=== PATIENT | female | born 2000 | race Hispanic/Latino ===

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

== ENCOUNTER → 2023-02-12 | Emergency (ER) | payer BC ==
[~2023-02-12] MED LIST: IBUPROFEN 200 MG TAB PO ONE; IBUPROFEN 400 MG TAB ONE
--- OUTSIDE RECORDS SUMMARY | 2023-02-12 18:57 | XMS REPORT | Continuity of Care Document ---
Author Name Unknown Address [address] [facility] [place] [address] [facility] thconnect Address [address] [facility] [address] [place] [address] Care Team Providers Care Occupational Therapy Teacher Name Role Phone JESSENIA TANG Primary Care Physician Lynette vailable RICHIE ZAPIEN Attending Clinician Unavailable ERICKSON NEGRON Attending Clinician Unavailalex Bagley MAMay Attending Clinician Unavailab ELINOR Leavitt Attending Clinician Richie Jose MD Attending Clinician [phone] Doctor Unassigned, [place] Attending Clinician Kaylee Culp MA Attending Clinician UnavailElinor Hernández Attending Clinician [phone] Slime Bailey PA-C Attending Clinician [phone] SLIME BAILEY Attending Clinician Unavailable , [facility] Attending Clinician Unavailable Christiana Perez Attending Clinician [phone] Annalisa Galeana MD Attending Clinician [phone] Marlene Chin MD Attending Clinician [phone] ANNALISA GALEANA Attending Clinician Unavailable Lester MARCUM, Umair Stephenson Attending Clinician [phone] UMAIR VELIZ Attending Clinician Unavailable Marce PNP, Tracy L Attending Clinician [phone] Lab, [facility] Fam Pob I Attending Clinician Unavailab martina Centeno HARP REPAIRERKala Attending Clinician [phone], [facility] Attending Clinician Unavailable Bridger MARCUM, Cortney Attending Clinician [phone] Payers Payer Name Policy Type Policy Number Effective Date Expirati on Date Source [facility] [id number] 2022 00:00:00 [facility] [id number] 2019 00:00:00 Problems Condition Name Condition Details Condition Category Status Onset Date Resolution Date Last Treatment Date Treating Clinician Comments Source Nexplanon in place Nexplanon in place Disease Active 04-21 00:00: 00 [facility] Irregular menstrual cycle Irregular menstrual cycle Disease Active 04-21 00:00: 00 [facility] Allergies, Adverse Reactions, Alerts Allergy Name Allergy Type Status Severity Reaction(s) Onset Date Inactive Date Treating Clinician Comments Source NO KNOWN ALLERGIE S Drug Class Active [facility] Social History Social Habit Start Date Stop Date Quantity Comments Source History SDOH Alcohol Comment [facility] History SDOH Alcohol Std Drinks [facility] History SDOH Alcohol Binge [facility] Exposure to SARS-CoV-2 (event) 2022-04-17 00:00:00 2022-04-27 10:28:00 Not sure [facility] Alcohol intake 2022-04-27 00:00:00 2022-04-27 00:00:00 Lifetime non-drinker (finding) [facility] Tobacco use and exposure 2022-03-29 00:00:00 2022-03-29 00:00:00 Smokeless tobacco non-user [facility] History SDOH Alcohol Frequency 2018-10-24 00:00:00 2018-10-24 00:00:00 1 [facility] Sex Assigned At 2000 00:00:00 2000 00:00:00 [facility] Smoking Status Start Date Stop Date Source Never smoked tobacco [facility] Medications Ordered Medication Name Filled Medication Name Start Date Stop Date Current Medication? Ordering Clinician Indication Dosage Frequency Signature (SIG) Comments Components Source etonogestre L (NEXPLANON) 68 mg implant 2022-0 04-27 10:45: 08 Yes 68mg 68 mg by Subdermal route once now. [facility] etonogestre L (NEXPLANON) 68 mg implant 2022-0 04-27 10:45: 08 Yes 68mg 68 mg by Subdermal route once now. [facility] etonogestre L (NEXPLANON) 68 mg implant 2022-0 04-27 10:45: 08 Yes 68mg 68 mg by Subdermal route once now. [facility] etonogestre L (NEXPLANON) 68 mg implant 0 04-27 10:45: 08 Yes 68mg 68 mg by Subdermal route once now. [facility] tretinoin 0.025 % cream 0 2- 00:00: 00 Yes [id number] Apply to affected area(s) at bedtime. [facility] clindamycin 1 % gel 2022-0 2-02 00:00: 00 Yes [id number] Apply to affected area(s) 2 (two) times daily. [facility] tretinoin 0.025 % cream 0 2-02 00:00: 00 Yes [id number] Apply to affected area(s) at bedtime. [facility] clindamycin 1 % gel 2022-0 2-02 00:00: 00 Yes [id number] Apply to affected area(s) 2 (two) times daily. [facility] tretinoin 0.025 % cream 2022-0 2-02 00:00: 00 Yes [id number] Apply to affected area(s) at bedtime. [facility] clindamycin 1 % gel 2022-0 2-02 00:00: 00 Yes [id number] Apply to affected area(s) 2 (two) times daily. [facility] tretino[facility].025 % cream 0 2-02 00:00: 00 Yes [id number] Apply to affected area(s) at bedtime. [facility] clindamycin 1 % gel 0 2-02 00:00: 00 Yes [id number] Apply to affected area(s) 2 (two) times daily. [facility] tretinoin 0.025 % cream 0 2- 00:00: 00 Yes [id number] Apply to affected area(s) at bedtime. [facility] clindamycin 1 % gel 2022-0 2- 00:00: 00 Yes [id number] Apply to affected area(s) 2 (two) times daily. [facility] tretinoin 0.025 % cream 0 2- 00:00: 00 Yes [id number] Apply to affected area(s) at bedtime. [facility] clindamycin 1 % gel 2022-0 2- 00:00: 00 Yes [id number] Apply to affected area(s) 2 (two) times daily. [facility] tretinoin 0.025 % cream 0 2- 00:00: 00 Yes [id number] Apply to affected area(s) at bedtime. [facility] clindamycin 1 % gel 0 2- 00:00: 00 Yes [id number] Apply to affected area(s) 2 (two) times daily. [facility] tretinoin 0.025 % cream 0 2- 00:00: 00 Yes [id number] Apply to affected area(s) at bedtime. [facility] clindamycin 1 % gel 2022-0 2-02 00:00: 00 Yes [id number] Apply to affected area(s) 2 (two) times daily. [facility] etonogestre L (NEXPLANON) implant 68 mg 04-21 18:45: 00 04-21 17:46 :00 No [id number] 68mg [facility] etonogestre L (NEXPLANON) implant 68 mg 04-21 18:45: 00 04-21 17:46 :00 No [id number] 68mg 68 mg, Subdermal, ONCE NOW, 1 dose, On Sat04/21/21 at 1245, Routine
Use approved by: PATIENT CASE COORDINATOR [facility] medroxyPROG ESTERone (PROVERA) 10 mg tablet 2020-02 00:00: 00 04-21 00:00 :00 No [id number] Take one by mouth on daily [facility] clindamycin 1 % gel 16 00:00: 00 Yes [id number] Apply to affected area(s) 2 (two) times daily. [facility] tretinoin 0.025 % cream 16 00:00: 00 Yes [id number] Apply to affected area(s) at bedtime. [facility] clindamycin 1 % gel 16 00:00: 00 Yes [id number] Apply to affected area(s) 2 (two) times daily. [facility] tretinoin 0.025 % cream 16 00:00: 00 Yes [id number] Apply to affected area(s) at bedtime. [facility] clindamycin 1 % gel 16 00:00: 00 Yes [id number] Apply to affected area(s) 2 (two) times daily. [facility] tretinoin 0.025 % cream 0 16 00:00: 00 Yes [id number] Apply to affected area(s) at bedtime. [facility] clindamycin 1 % gel 0 16 00:00: 00 03-29 00:00 :00 No [id number] Apply to affected area(s) 2 (two) times daily. [facility] tretinoin 0.025 % cream 0 16 00:00: 00 03-29 00:00 :00 No [id number] Apply to affected area(s) at bedtime. [facility] clindamycin 1 % gel 6-16 00:00: 00 03-29 00:00 :00 No [id number] Apply to affected area(s) 2 (two) times daily. [facility] tretinoin 0.025 % cream 6-16 00:00: 00 03-29 00:00 :00 No [id number] Apply to affected area(s) at bedtime. [facility] tretinoin 0.025 % cream 4- 00:00: 00 08-10 00:00 :00 No [id number] Apply to affected area(s) at bedtime. [facility] clindamycin 1 % gel 4- 00:00: 00 08-10 00:00 :00 No [id number] Apply to affected area(s) 2 (two) times daily. [facility] medroxyPROG ESTERone (PROVERA) 10 mg tablet 8-30 00:00: 00 11-28 00:00 :00 No [id number] Take one by mouth on days 1-10 of each month. [facility] Vital Signs Vital Name Observation Time Observation Value Comments S ourmatt Systolic blood pressure 2022-04-27 16:38:00 128 mm[Hg] [facility] Diastolic blood pressure 2022-04-27 16:38:00 88 mm[Hg] [facility] Heart rate 2022-04-27 16:38:00 70 /min [facility] Body temperature 2022-04-27 16:38:00 36.67 Usha [facility] Respiratory rate 2022-04-27 16:38:00 16 /min [facility] Body height 2022-04-27 16:38:00 157.5 cm [facility] Body weight 2022-04-27 16:38:00 71.714 kg [facility] BMI 2022-04-27 16:38:00 28.92 kg/m2 [facility] Body height 2022-03-29 15:06:00 154.9 cm [facility] Body weight 2022-03-29 15:06:00 63.277 kg [facility] BMI 2022-03-29 15:06:00 26.36 kg/m2 [facility] Systolic blood pressure 2021-04-21 16:52:00 121 mm[Hg] [facility] Diastolic blood pressure 2021-04-21 16:52:00 81 mm[Hg] [facility] Heart rate 2021-04-21 16:52:00 98 /min [facility] Body temperature 2021-04-21 16:52:00 36.72 Usha [facility] Respiratory rate 2021-04-21 16:52:00 18 /min [facility] Body height 2021-04-21 16:52:00 154.9 cm [facility] Body weight 2021-04-21 16:52:00 63.277 kg [facility] BMI 2021-04-21 16:52:00 26.36 kg/m2 [facility] Body mass index (BMI) [Percentile] Per age and sex 2021-04-21 16:52:00 86.28 % [facility] Procedures Procedure Date / Time Performed Performing Clinician Source [facility] PATIENT FINANCIAL POLICY 2022-04-27 16:28:43 Doctor Unassigned, [place] [facility] CONSENT/REFUSAL FOR DIAGNOSIS AND TREATMENT 2022-03-29 14:45:55 Doctor Unassigned, [place] [facility] CONSENT FOR CONTRACEPTION 2021-04-21 06:01:00 Doctor Unassigned, [place] [facility] Encounters Start Date/Time End Date/Time Encounter Type Admission Type Attending Clinicians Care Facility Care Department Encounter ID Source 2023-02-22 09:00:00 2023-02-22 09:00:00 Outpatient RICHIE BLANC [facility] [id number] [facility] 2023-02-01 09:00:00 2023-02-01 09:00:00 Outpatient RICHIE BLANC [facility] [id number] [facility] 2022-08-03 16:00:00 2022-08-03 16:00:00 Outpatient BK MURRAYY [facility] [id number] [facility] 2022-08-02 00:00:00 2022-08-02 00:00:00 Pre Visit Outreach Mary Carmen Bagley 1..114 350.1.13.10 4.2.7.2.686 [id number] [facility] 2022-06-28 13:00:00 2022-06-28 13:00:00 Outpatient R ELINOR KAMARA [facility] [id number] [facility] 2022-04-30 00:00:00 2022-04-30 00:00:00 Telephone Richie Zapien [facility] 1..114 350.1.13.10 4.2.7.2.686 [id number] [facility] 2022-04-27 09:30:00 2022-04-27 10:52:26 Outpatient R RICHIE ZAPIEN [facility] [id number] [facility] 2022-04-27 09:30:00 2022-04-27 10:52:26 Office Visit Richie Zapien [facility] 1..114 350.1.13.10 4.2.7.2.686 [id number] [facility] 2022-04-27 00:00:00 2022-04-27 00:00:00 Orders Only Doctor Unassigned, [place] [facility] 1..114 350.1.13.10 4.2.7.2.686 [id number] [facility] 2022-04-20 00:00:00 2022-04-20 00:00:00 Pre Visit Outreach Kaylee Goldberg [facility] 1..114 350.1.13.10 4.2.7.2.686 [id number] [facility] 2022-03-29 09:00:00 2022-03-29 09:17:35 Outpatient R SHU ELINOR [facility] [id number] [facility] 2022-03-29 09:00:00 2022-03-29 09:17:35 [facility] 1.2840.114 350.1.13.10 4.2.7.2.686 [id number] [facility] 2022-03-29 00:00:00 2022-03-29 00:00:00 Orders Only Doctor Unassigned, [place] [facility] 1.2840.114 350.1.13.10 4.2.7.2.686 [id number] [facility] 2021-04-21 10:30:00 2021-04-21 11:46:04 Office Visit Richie Zapien [facility] 1.840.114 350.1.13.10 4.2.7.2.686 [id number] [facility] 2021-04-21 10:30:00 2021-04-21 11:46:04 Outpatient R RICHIE ZAPIEN [facility] [id number] [facility] 2021-04-21 10:30:00 2021-04-21 10:30:00 Outpatient R RICHIE ZAPIEN [facility] [id number] [facility] 2021-04-21 00:00:00 2021-04-21 00:00:00 Orders Only Doctor Unassigned, [place] [facility] 1.840.114 350.1.13.10 4.2.7.2.686 [id number] [facility] 2021-03-26 00:00:00 2021-03-26 00:00:00 Slime Arredondo [facility] 1.2.840.114 350.1.13.10 4.2.7.2.686 [id number] [facility] 2020-12-26 10:44:27 2020-12-26 11:14:27 Office Visit Slime Bailey [facility] 1.2.840.114 350.1.13.10 4.2.7.2.686 [id number] [facility] 2020-12-26 10:30:00 2020-12-26 10:30:00 [facility] [id number] 2020-12-26 10:30:00 2020-12-26 10:30:00 [facility] [id number] [facility] 2020-12-26 00:00:00 2020-12-26 00:00:00 Orders Only Doctor Unassigned, [place] [facility] 1.2.840.114 350.1.13.10 4.2.7.2.686 [id number] [facility] 2020-11-28 15:12:43 2020-11-28 15:27:43 Burial Needs Salesperson Visit 2, [facility] Slime Bailey [facility] 1.2.840.114 350.1.13.10 4.2.7.2.686 [id number] [facility] 2020-11-28 14:11:07 2020-11-28 15:08:42 Office Visit Slime Bailey [facility] 1.2.840.114 350.1.13.10 4.2.7.2.686 [id number] [facility] 2020-11-28 14:00:00 2020-11-28 14:00:00 Outpatient R LYNN [facility] [id number] [facility] 2020-11-28 00:00:00 2020-11-28 00:00:00 Orders Only Doctor Unassigned, [place] [facility] 1..114 350.1.13.10 4.2.7.2.686 [id number] [facility] 2020-11-09 10:15:00 2020-11-09 10:15:00 Outpatient Wendie BAILEY SLIME [facility] [id number] [facility] 2020-08-10 09:10:43 2020-08-10 09:25:43 Office Visit Christiana Perez Erica [employer], Kathleen [facility] 1.114 350.1.13.10 4.2.7.2.686 [id number] [facility] 2020-08-10 09:15:00 2020-08-10 09:15:00 Outpatient ANNALISA BARRAZA [facility] [id number] [facility] 2020-05-26 10:03:48 2020-05-26 10:23:03 Office Visit Christiana Perez Lindy Skye [facility] 1.114 350.1.13.10 4.2.7.2.686 [id number] [facility] 2020-05-26 10:00:00 2020-05-26 10:00:00 Outpatient UMAIR CALLE [facility] [id number] [facility] 2020-05-26 00:00:00 2020-05-26 00:00:00 Letter (Out) Tracy Zheng [facility] 1.114 350.1.13.10 4.2.7.2.686 [id number] [facility] 2019-09-15 09:05:58 2019-09-15 09:37:26 Laboratory Only Lab, [facility] Fam Pob I [facility] 1.20.114 350.1.13.10 4.2.7.2.686 [id number] 2019-09-15 09:05:58 2019-09-15 09:37:26 Laboratory Only Lab, [facility] Fam Pob I Kala Centeno [facility] 1.2114 350.1.13.10 4.2.7.2.686 [id number] [facility] 2019-09-15 09:00:00 2019-09-15 09:00:00 Outpatient R [facility] [id number] [facility] 2018-10-24 10:10:09 2018-10-24 10:25:09 Burial Needs Salesperson Visit 1, [facility] Lab Cortney Sparks [facility] 1.2840.114 350.1.13.10 4.2.7.2.686 [id number] [facility] 2018-10-24 08:41:09 2018-10-24 09:43:42 Office Visit Bridger Cortney [facility] 1.2840.114 350.1.13.10 4.2.7.2.686 [id number] [facility] 2018-10-24 00:00:00 2018-10-24 00:00:00 Letter (Out) Bridger Cortney [facility] 1.2.840.114 350.1.13.10 4.2.7.2.686 [id number] [facility] 2018-10-24 00:00:00 2018-10-24 00:00:00 Telephone Richie Zapien [facility] 1.2840.114 350.1.13.10 4.2.7.2.686 [id number] [facility] Results Test Description Test Time Test Comments Results Result Co mments Source CULTURE, ROUTINE 2022-09-03 12:44:11 SPECIMEN NUMBER: [id number] CULTURE, ROUTINE SPECIMEN NUMBER: [id number] SPECIMEN COMMENT: ABDOMEN SOURCE: ABDOMEN REPORT STATUS: FINAL DIRECT GRAM STAIN: NO WBCs SEEN NO BACTERIA SEEN FINAL REPORT: 09/03/2022 FEW NORMAL SKIN TAYLOR PRELIMINARY REPORT: 08/31/2022 FEW GRAM POSITIVE TAYLOR PRELIMINARY REPORT #2: 09/01/2022 FEW GRAM POSITIVE TAYLOR UNLESS OTHERWISE INDICATED, ALL TESTING PERFORMED AT [facility] [address] [place] [address] ADULT LITERACY TEACHER: OPAL LANGFORD M.D. CLIA NUMBER [id number] [facility] [place]. [id number]
--- NOTE | 2023-02-12 21:29 | EDPHYS ---
Physician Documentation [facility] Name: Luis Puckett Age: 22 yrs Sex: Female : 2000 Arrival Date: 02/12/2023 Time: 18:54 Bed IW1 Private MD: ED Physician Gm Gipson HPI: 02/12 22:10 This 22 yrs old Female presents to ER via Ambulatory with complaints of Sore kb Throat. 22:10 Patient is a 22-year-old female with no medical history presents for sore throat, kb congestion, chills and bilateral ear pain that started yesterday. Denies cough, shortness of breath, chest pain. Historical: - Allergies: 19:02 No Known Allergies; nj1 - PMHx: 19:02 None; nj1 - Immunization history:: Client reports receiving the 2nd dose of the Covid vaccine. - Social history:: Smoking status: Reported history of juuling and/or vaping. ROS: 22:09 Abdomen/GI: Negative for abdominal pain, nausea, vomiting, diarrhea, and constipation, kb 22:09 Constitutional: Positive for chills, 22:09 ENT: Positive for ear pain, sinus congestion, sore throat, 22:09 All other systems are negative, kb Exam: 22:09 Constitutional: This is a well developed, well nourished patient who is awake, alert, kb and in no acute distress. Head/Face: Normocephalic, atraumatic. ENT: Moist Mucous membranes Cardiovascular: Regular rate Respiratory: Respirations even and unlabored. No increased work of breathing. Talking in full sentences Abdomen/GI: Soft, non-tender. No distention Skin: Warm, dry with normal turgor. Normal color. MS/ Extremity: Pulses equal, no cyanosis. Neurovascular intact. Full, normal range of motion. Neuro: Awake and alert, GCS 15, oriented to person, place, time, and situation. Moves all extremities. Normal gait. Vital Signs: 19:00 BP 138 / 101; Pulse 126; Resp 16; Temp 99.2(O); Pulse Ox 100% ; Weight 73.94 kg; Height nj1 5 ft. 1 in. ; Pain 8/10; 21:30 BP 148 / 80; Pulse 109; Resp 16; Temp 97.9; Pulse Ox 99% on R/A; cg3 19:00 Body Mass Index 30.80 (73.94 kg, 154.94 cm) nj1 19:00 Pain Scale: Adult nj1 MDM: 18:58 Patient medically screened. kb 22:09 Differential diagnosis: Flu, strep, COVID, otitis media, URI. Data reviewed: vital kb signs, nurses notes. Historians other than the Patient: Parent: Mother. Counseling: I had a detailed discussion with the patient and/or guardian regarding the historical points, exam findings, and any diagnostic results supporting the discharge/admit diagnosis, lab results, the need for outpatient follow up, a family practitioner, to return to the emergency department if symptoms worsen or persist or if there are any questions or concerns that arise at home. 02/12 19:03 Order name: COVID-19 SARS RT PCR; Complete Time: 20:27 kb 02/12 19:03 Order name: Flu; Complete Time: 20:56 kb 02/12 19:03 Order name: Strep; Complete Time: 20:27 kb 02/12 19:59 Order name: Throat Culture [facility] 02/12 20:57 Order name: Vital Signs; Complete Time: 21:32 kb Administered Medications: 19:13 Drug: Ibuprofen PO 600 mg PO once Route: PO; nj1 Disposition Summary: 02/12/23 21:28 Discharge Ordered Notes: Location: Home kb Condition: Stable kb Diagnosis - Acute upper respiratory infection, unspecified kb Followup: kb - With: Emergency Department - When: As needed - Reason: Worsening of condition Followup: kb - With: Private Physician - When: 2 - 3 days - Reason: Recheck today's complaints, Continuance of care, Re-evaluation by your physician Discharge Instructions: - Discharge Summary Sheet kb - Upper Respiratory Infection, Adult, Gqoo-bz-[id number] kb - Viral Respiratory Infection, Xvdq-Ja-[id number] kb Forms: - Work release form kb - Medication Reconciliation Form kb - Thank You Letter kb - Antibiotic Education kb - Prescription Opioid Use kb - Patient Portal Instructions kb - Leadership Thank You Letter kb Signatures: Dispatcher [employer] EDAmberly Valdes, Rosita Brewster RN RN nj1 Corrections: (The following items were deleted from the chart) 22:09 22:09 ENT: Positive for sinus congestion, sore throat, kb kb
--- NOTE | 2023-02-12 21:29 | ER ---
Nurse's Notes [facility] Name: Luis Puckett Age: 22 yrs Sex: Female : 2000 Arrival Date: 02/12/2023 Time: 18:54 Bed IW1 Private MD: Diagnosis: Acute upper respiratory infection, unspecified Presentation: 02/12 19:00 Chief complaint: Patient states: Sore throat since yesterday, got worse this morning. nj1 Ramiro ear pain, congestion. Chills. Coronavirus screen: Vaccine status: Patient reports receiving the 2nd dose of the covid vaccine. Ebola Screen: Patient denies travel to an Ebola-affected area in the 21 days before illness onset. Initial Sepsis Screen: Does the patient meet any 2 criteria? HR > 90 bpm. No. Patient's initial sepsis screen is negative. Does the patient have a suspected source of infection? No. Patient's initial sepsis screen is negative. Risk Assessment: Do you want to hurt yourself or someone else? Patient reports no desire to harm self or others. Onset of symptoms was February 11, 2023. 19:00 Method Of Arrival: Ambulatory banner 19:00 Acuity: RUBI 2 nj1 Historical: - Allergies: 19:02 No Known Allergies; nj1 - PMHx: 19:02 None; nj1 - Immunization history:: Client reports receiving the 2nd dose of the Covid vaccine. - Social history:: Smoking status: Reported history of juuling and/or vaping. Screenin:34 [facility] ED Fall Risk Assessment (Adult) History of falling in the last 3 months, lg3 including since admission No falls in past 3 months (0 pts). Abuse screen: Denies threats or abuse. Denies injuries from another. Nutritional screening: No deficits noted. Tuberculosis screening: No symptoms or risk factors identified. Assessment: 21:34 General: Appears in no apparent distress. comfortable. Pain: Complains of pain in right lg3 ear and left ear, throat. Neuro: No deficits noted. Stewart Agitation-Sedation Scale (RASS): 0 - Alert and Calm Level of Consciousness is awake, alert, obeys commands, Oriented to person, place, time, situation. Cardiovascular: No deficits noted. Respiratory: No deficits noted. Airway is patent Respiratory effort is even, unlabored, Respiratory pattern is regular, symmetrical, Breath sounds are clear bilaterally. GI: No deficits noted. No signs and/or symptoms were reported involving the gastrointestinal system. : No deficits noted. No signs and/or symptoms were reported regarding the genitourinary system. EENT: Throat is clear. Derm: No deficits noted. No signs and/or symptoms reported regarding the dermatologic system. Skin is intact, is healthy with good turgor, Skin is dry, Skin is normal, Skin temperature is warm. Musculoskeletal: No deficits noted. No signs and/or symptoms reported regarding the musculoskeletal system. Circulation, motion, and sensation intact. Range of motion: intact in all extremities. Vital Signs: 19:00 BP 138 / 101; Pulse 126; Resp 16; Temp 99.2(O); Pulse Ox 100% ; Weight 73.94 kg; Height nj1 5 ft. 1 in. ; Pain 8/10; 21:30 BP 148 / 80; Pulse 109; Resp 16; Temp 97.9; Pulse Ox 99% on R/A; cg3 19:00 Body Mass Index 30.80 (73.94 kg, 154.94 cm) nj1 19:00 Pain Scale: Adult nj1 ED Course: 18:55 Patient arrived in ED. rg4 18:58 Amberly Guillory FNP-C is [facility]. kb 18:58 Gm Gipson MD is Attending Physician. kb 19:02 Triage completed. nj1 19:03 Arm band placed on right wrist. nj1 19:04 Notified Nurse Practitioner and/or Physician [employer] Drilling [employer] Operator of vital signs. nj1 21:34 Patient has correct armband on for positive identification. lg3 21:34 No provider procedures requiring assistance completed. Patient did not have IV access lg3 during this emergency room visit. Administered Medications: 19:13 Drug: Ibuprofen PO 600 mg PO once Route: PO; nj1 Medication: 21:34 VIS not applicable for this client. lg3 Outcome: 21:28 Discharge ordered by . kb 21:34 Discharged to home ambulatory, lg3 21:34 Condition: stable 21:34 Discharge instructions given to patient, Instructed on discharge instructions, follow up and referral plans. Demonstrated understanding of instructions, follow-up care, 21:37 Patient left the ED. lg3 Signatures: Amberly Guillory FNP-C FNP-Cassandra Garnett rg4 Lindsey Vargas RN RN lg3 Rosita Avila RN RN nj1 Kayli Carr cg3 Corrections: (The following items were deleted from the chart) 19:04 19:00 BP 141 / 104; Pulse 126bpm; Resp 16bpm; Pulse Ox 100%; Temp 99.2F Oral; 73.94 kg; nj1 Height 5 ft. 1 in.; BMI: 30.8; Pain 8/10, Adult; nj1
[2023-02-12 22:55] VITALS: BP 148/80; TEMP 97.9; O2SAT 99
== END ==
LOC: ER 18:54
DX: J06.9 Acute upper respiratory infection, unspecified (principal); Z11.52 Encounter for screening for COVID-19
CPT/HCPCS: 87070; 87081; 87635; 87804; 99283

== ENCOUNTER 2023-05-28 23:43 | Emergency (ER) | payer BC ==
--- OUTSIDE RECORDS SUMMARY | 2023-05-28 23:48 | XMS REPORT | Continuity of Care Document ---
Author Name Unknown Address [address] [facility]. [address] [place] [address] [facility] thconnect Address [address] [facility] [address] [place] [address] Care Team Prov[address] Care [address] Light Wirer Name Role Phone JESSENIA TANG Primary Care Physician Lynette vaRICHIE Franklin Attending Clinician Unavailable Curry MARCUM, Richie Can Attending Clinician [phone] Doctor Unassigned, [place] Attending Clinician U ERICKSON Angel Attending Clinician Unavailalex Bagley , May Attending Clinician UnavailELINOR Valles Attending Clinician Kaylee Shaw MA Attending Clinician UnavailElinor Hernández Attending Clinician [phone] Slime Bailey PA-C Attending Clinician [phone] SLIME BAILEY Attending Clinician Unavailable 2, [facility] Attending Clinician Unavailable Christiana Perez Attending Clinician [phone] Annalisa Galeana MD Attending Clinician [phone] Marlene Chin MD Attending Clinician [phone] ANNALISA GALEANA Attending Clinician Unavailable Umair Veliz MD Attending Clinician [phone] UMAIR VELIZ Attending Clinician Unavailable Marce PASTOR, Tracy Gleason Attending Clinician [phone] Lab, [facility] Fam Pob I Attending Clinician Unavailab martina Centeno PROCESS VALIDATION ENGINEERKala Attending Clinician [phone] 1, [facility] Attending Clinician Unavailable Cortney Sparks MD Attending Clinician [phone] Payers Payer Name Policy Type Policy Number Effective Date Expirati on Date Source BCBS [facility] [id number] 2022 00:00:00 [facility] [id number] 2019 00:00:00 Problems Condition Name Condition Details Condition Category Status Onset Date Resolution Date Last Treatment Date Treating Clinician Comments Source Severe menstrual cramps Severe menstrual cramps Disease Active 05-19 00:00: 00 [facility] Nexplanon in place Nexplanon in place Disease Active 04-21 00:00: 00 [facility] Irregular menstrual cycle Irregular menstrual cycle Disease Active 04-21 00:00: 00 [facility] Allergies, Adverse Reactions, Alerts Allergy Name Allergy Type Status Severity Reaction(s) Onset Date Inactive Date Treating Clinician Comments Source NO KNOWN ALLERGIE S Drug Class Active [facility] Social History Social Habit Start Date Stop Date Quantity Comments Source History SDOH Alcohol Comment [place] [facility] History SDOH Alcohol Std Drinks [facility] History SDOH Alcohol Binge [facility] 2023-05-20 00:00:00 2023-05-20 00:00:00 Lifetime non-drinker (finding) [facility] History of Social function 2023-05-20 00:00:00 2023-05-20 00:00:00 [facility] Exposure to SARS-CoV-2 (event) 2022-04-17 00:00:00 2022-04-27 10:28:00 Not sure [facility] Tobacco use and exposure 2022-03-29 00:00:00 2022-03-29 00:00:00 Smokeless tobacco non-user [facility] History SDOH Alcohol Frequency 2018-10-24 00:00:00 2018-10-24 00:00:00 1 [facility] Sex Assigned At 2002 00:00:00 2002 00:00:00 [facility] Smoking Status Start Date Stop Date Source Never smoked tobacco [facility] Medications Ordered Medication Name Filled Medication Name Start Date Stop Date Current Medication? Ordering Clinician Indication Dosage Frequency Signature (SIG) Comments Components Source medroxyPROG ESTERone (PROVERA) 10 mg tablet 05-19 00:00: 00 Yes [id number] 10mg Take 1 tablet by mouth in the morning. [facility] ibuprofen 600 mg tablet 05-19 00:00: 00 Yes [id number] 600mg Take 1 tablet by mouth every 6 (six) hours as needed for Pain (scale 1-3) or Pain (scale 4-6). [facility] etonogestre L (NEXPLANON) 68 mg implant 04-27 10:45: 08 Yes 68mg 68 mg by Subdermal route once now. [facility] tretinoin 0.025 % cream 03-29 00:00: 00 Yes [id number] Apply to affected area(s) at bedtime. [facility] clindamycin 1 % gel 03-29 00:00: 00 Yes [id number] Apply to affected area(s) 2 (two) times daily. [facility] etonogestre L (NEXPLANON) implant 68 mg 04-21 18:45: 00 04-21 17:46 :00 No [id number] [facility] ESTERone (PROVERA) 10 mg tablet 2020-02 00:00: 00 04-21 00:00 :00 No [id number] Take one by mouth on daily [facility] clindamycin 1 % gel 6-16 00:00: 00 03-29 00:00 :00 No [id number] Apply to affected area(s) 2 (two) times daily. [facility] tretinoin 0.025 % cream 16 00:00: 00 03-29 00:00 :00 No [id number] Apply to affected area(s) at bedtime. [facility] tretinoin 0.025 % cream 4- 00:00: 00 08-10 00:00 :00 No [id number] Apply to affected area(s) at bedtime. [facility] clindamycin 1 % gel 4- 00:00: 00 08-10 00:00 :00 No [id number] Apply to affected area(s) 2 (two) times daily. [facility] medroxyPROG ESTERone (PROVERA) 10 mg tablet 8-30 00:00: 00 11-28 00:00 :00 No [id number] Take one by mouth on days 1-10 of each month. [facility] Immunizations Ordered Immunization Name Filled Immunization Name Date Status Comments Source Influenza Virus Vaccine 2021-11-25 00:00:00 Completed [facility] Influenza Virus Vaccine 2021-11-25 00:00:00 Completed [facility] Influenza Virus Vaccine 2021-11-25 00:00:00 Completed [facility] Influenza Virus Vaccine 2021-11-25 00:00:00 Completed [facility] Meningococcal Polysaccharide (groups A, C, Y and W-135) conjugate vaccine (MCV4P) 2018-10-22 00:00:00 Completed [facility] Meningococcal B, OMV 2018-10-22 00:00:00 Completed [facility] Meningococcal Polysaccharide (groups A, C, Y and W-135) conjugate vaccine (MCV4P) 2018-10-22 00:00:00 Completed [facility] Meningococcal B, OMV 2018-10-22 00:00:00 Completed [facility] Meningococcal Polysaccharide (groups A, C, Y and W-135) conjugate vaccine (MCV4P) 2018-10-22 00:00:00 Completed [facility] Meningococcal B, OMV 2018-10-22 00:00:00 Completed [facility] Meningococcal Polysaccharide (groups A, C, Y and W-135) conjugate vaccine (MCV4P) 2018-10-22 00:00:00 Completed [facility] Meningococcal B, OMV 2018-10-22 00:00:00 Completed [facility] Meningococcal Polysaccharide (groups A, C, Y and W-135) conjugate vaccine (MCV4P) 2018-10-22 00:00:00 Completed [facility] Meningococcal B, OMV 2018-10-22 00:00:00 Completed [facility] Meningococcal Polysaccharide (groups A, C, Y and W-135) conjugate vaccine (MCV4P) 2018-10-22 00:00:00 Completed [facility] Meningococcal B, OMV 2018-10-22 00:00:00 Completed [facility] Influenza Virus Vaccine Quad .5 mL IM 6+ MO 2017-04-05 00:00:00 Completed [facility] Influenza Virus Vaccine Quad .5 mL IM 6+ MO 2017-04-05 00:00:00 Completed [facility] Influenza Virus Vaccine Quad .5 mL IM 6+ MO 2017-04-05 00:00:00 Completed [facility] Influenza Virus Vaccine Quad .5 mL IM 6+ MO 2017-04-05 00:00:00 Completed [facility] Influenza Virus Vaccine Quad .5 mL IM 6+ MO 2017-04-05 00:00:00 Completed [facility] Influenza Virus Vaccine Quad .5 mL IM 6+ MO 2017-04-05 00:00:00 Completed [facility] HPV 2014-07-29 00:00:00 Completed [facility] HPV 2014-07-29 00:00:00 Completed [facility] HPV 2014-07-29 00:00:00 Completed [facility] HPV 2014-07-29 00:00:00 Completed [facility] HPV 2014-07-29 00:00:00 Completed [facility] HPV 2014-07-29 00:00:00 Completed [facility] Influenza Virus Vaccine Quad Nasal 2013-12-10 00:00:00 Completed [facility] Influenza Virus Vaccine Quad Nasal 2013-12-10 00:00:00 Completed [facility] Influenza Virus Vaccine Quad Nasal 2013-12-10 00:00:00 Completed [facility] Influenza Virus Vaccine Quad Nasal 2013-12-10 00:00:00 Completed [facility] Influenza Virus Vaccine Quad Nasal 2013-12-10 00:00:00 Completed [facility] Influenza Virus Vaccine Quad Nasal 2013-12-10 00:00:00 Completed [facility] HPV 2013-09-29 00:00:00 Completed [facility] HPV 2013-09-29 00:00:00 Completed [facility] HPV 2013-09-29 00:00:00 Completed [facility] HPV 2013-09-29 00:00:00 Completed [facility] HPV 2013-09-29 00:00:00 Completed [facility] HPV 2013-09-29 00:00:00 Completed [facility] HPV 2013-07-27 00:00:00 Completed [facility] Meningococcal Polysaccharide (groups A, C, Y and W-135) conjugate vaccine (MCV4P) 2013-07-27 00:00:00 Completed [facility] TDAP 2013-07-27 00:00:00 Completed [facility] HPV 2013-07-27 00:00:00 Completed [facility] Meningococcal Polysaccharide (groups A, C, Y and W-135) conjugate vaccine (MCV4P) 2013-07-27 00:00:00 Completed [facility] TDAP 2013-07-27 00:00:00 Completed [facility] HPV 2013-07-27 00:00:00 Completed [facility] Meningococcal Polysaccharide (groups A, C, Y and W-135) conjugate vaccine (MCV4P) 2013-07-27 00:00:00 Completed [facility] TDAP 2013-07-27 00:00:00 Completed [facility] HPV 2013-07-27 00:00:00 Completed [facility] Meningococcal Polysaccharide (groups A, C, Y and W-135) conjugate vaccine (MCV4P) 2013-07-27 00:00:00 Completed [facility] TDAP 2013-07-27 00:00:00 Completed [facility] HPV 2013-07-27 00:00:00 Completed [facility] Meningococcal Polysaccharide (groups A, C, Y and W-135) conjugate vaccine (MCV4P) 2013-07-27 00:00:00 Completed [facility] TDAP 2013-07-27 00:00:00 Completed [facility] HPV 2013-07-27 00:00:00 Completed [facility] Meningococcal Polysaccharide (groups A, C, Y and W-135) conjugate vaccine (MCV4P) 2013-07-27 00:00:00 Completed [facility] TDAP 2013-07-27 00:00:00 Completed [facility] Influenza Virus Vaccine Nasal 2012-01-31 00:00:00 Completed [facility] Influenza Virus Vaccine Nasal 2012-01-31 00:00:00 Completed [facility] Influenza Virus Vaccine Nasal 2012-01-31 00:00:00 Completed [facility] Influenza Virus Vaccine Nasal 2012-01-31 00:00:00 Completed [facility] Influenza Virus Vaccine Nasal 2012-01-31 00:00:00 Completed [facility] Influenza Virus Vaccine Nasal 2012-01-31 00:00:00 Completed [facility] Influenza Virus Vaccine Nasal 2010-11-20 00:00:00 Completed [facility] Influenza Virus Vaccine Nasal 2010-11-20 00:00:00 Completed [facility] Influenza Virus Vaccine Nasal 2010-11-20 00:00:00 Completed [facility] Influenza Virus Vaccine Nasal 2010-11-20 00:00:00 Completed [facility] Influenza Virus Vaccine Nasal 2010-11-20 00:00:00 Completed [facility] Influenza Virus Vaccine Nasal 2010-11-20 00:00:00 Completed [facility] Flu Trivalent 2009-01-31 00:00:00 Completed [facility] Flu Trivalent 2009-01-31 00:00:00 Completed [facility] Flu Trivalent 2009-01-31 00:00:00 Completed [facility] Flu Trivalent 2009-01-31 00:00:00 Completed [facility] Flu Trivalent 2009-01-31 00:00:00 Completed [facility] Flu Trivalent 2009-01-31 00:00:00 Completed [facility] Flu Trivalent 2008-11-16 00:00:00 Completed [facility] Influenza Virus Vaccine - Whole 2008-11-16 00:00:00 Completed [facility] Flu Trivalent 2008-11-16 00:00:00 Completed [facility] Influenza Virus Vaccine - Whole 2008-11-16 00:00:00 Completed [facility] Flu Trivalent 2008-11-16 00:00:00 Completed [facility] Influenza Virus Vaccine - Whole 2008-11-16 00:00:00 Completed [facility] Flu Trivalent 2008-11-16 00:00:00 Completed [facility] Influenza Virus Vaccine - Whole 2008-11-16 00:00:00 Completed [facility] Flu Trivalent 2008-11-16 00:00:00 Completed [facility] Influenza Virus Vaccine - Whole 2008-11-16 00:00:00 Completed [facility] Flu Trivalent 2008-11-16 00:00:00 Completed [facility] Influenza Virus Vaccine - Whole 2008-11-16 00:00:00 Completed [facility] DTaP, Unspecified Formulation 2006 00:00:00 Completed [facility] HEPATITIS A 2006 00:00:00 Completed [facility] Proquad (MMR/VARICELLA) 2006 00:00:00 Completed [facility] IPV 2006 00:00:00 Completed [facility] DTaP, Unspecified Formulation 2006 00:00:00 Completed [facility] HEPATITIS A 2006 00:00:00 Completed [facility] Proquad (MMR/VARICELLA) 2006 00:00:00 Completed [facility] IPV 2006 00:00:00 Completed [facility] DTaP, Unspecified Formulation 2006 00:00:00 Completed [facility] HEPATITIS A 2006 00:00:00 Completed [facility] Proquad (MMR/VARICELLA) 2006 00:00:00 Completed [facility] IPV 2006 00:00:00 Completed [facility] DTaP, Unspecified Formulation 2006 00:00:00 Completed [facility] HEPATITIS A 2006 00:00:00 Completed [facility] Proquad (MMR/VARICELLA) 2006 00:00:00 Completed [facility] IPV 2006 00:00:00 Completed [facility] DTaP, Unspecified Formulation 2006 00:00:00 Completed [facility] HEPATITIS A 2006 00:00:00 Completed [facility] Proquad (MMR/VARICELLA) 2006 00:00:00 Completed [facility] IPV 2006 00:00:00 Completed [facility] DTaP, Unspecified Formulation 2006 00:00:00 Completed [facility] HEPATITIS A 2006 00:00:00 Completed [facility] Proquad (MMR/VARICELLA) 2006 00:00:00 Completed [facility] IPV 2006 00:00:00 Completed [facility] HEPATITIS A 2005-08-06 00:00:00 Completed [facility] HEPATITIS A 2005-08-06 00:00:00 Completed [facility] HEPATITIS A 2005-08-06 00:00:00 Completed [facility] HEPATITIS A 2005-08-06 00:00:00 Completed [facility] HEPATITIS A 2005-08-06 00:00:00 Completed [facility] HEPATITIS A 2005-08-06 00:00:00 Completed [facility] DTaP, Unspecified Formulation 2003-08-09 00:00:00 Completed [facility] HIB 4 Dose Schedule 2003-08-09 00:00:00 Completed [facility] DTaP, Unspecified Formulation 2003-08-09 00:00:00 Completed [facility] HIB 4 Dose Schedule 2003-08-09 00:00:00 Completed [facility] DTaP, Unspecified Formulation 2003-08-09 00:00:00 Completed [facility] HIB 4 Dose Schedule 2003-08-09 00:00:00 Completed [facility] DTaP, Unspecified Formulation 2003-08-09 00:00:00 Completed [facility] HIB 4 Dose Schedule 2003-08-09 00:00:00 Completed [facility] DTaP, Unspecified Formulation 2003-08-09 00:00:00 Completed [facility] HIB 4 Dose Schedule 2003-08-09 00:00:00 Completed [facility] DTaP, Unspecified Formulation 2003-08-09 00:00:00 Completed [facility] HIB 4 Dose Schedule 2003-08-09 00:00:00 Completed [facility] MMR 2003-06-29 00:00:00 Completed [facility] Pneumococcal 7 Conjugate, PCV7 (Prevnar7) 2003-06-29 00:00:00 Completed [facility] Varicella (varivax)(chicken pox) 2003-06-29 00:00:00 Completed [facility] MMR 2003-06-29 00:00:00 Completed [facility] Pneumococcal 7 Conjugate, PCV7 (Prevnar7) 2003-06-29 00:00:00 Completed [facility] Varicella (varivax)(chicken pox) 2003-06-29 00:00:00 Completed [facility] MMR 2003-06-29 00:00:00 Completed [facility] Pneumococcal 7 Conjugate, PCV7 (Prevnar7) 2003-06-29 00:00:00 Completed [facility] Varicella (varivax)(chicken pox) 2003-06-29 00:00:00 Completed [facility] MMR 2003-06-29 00:00:00 Completed [facility] Pneumococcal 7 Conjugate, PCV7 (Prevnar7) 2003-06-29 00:00:00 Completed [facility] Varicella (varivax)(chicken pox) 2003-06-29 00:00:00 Completed [facility] MMR 2003-06-29 00:00:00 Completed [facility] Pneumococcal 7 Conjugate, PCV7 (Prevnar7) 2003-06-29 00:00:00 Completed [facility] Varicella (varivax)(chicken pox) 2003-06-29 00:00:00 Completed [facility] MMR 2003-06-29 00:00:00 Completed [facility] Pneumococcal 7 Conjugate, PCV7 (Prevnar7) 2003-06-29 00:00:00 Completed [facility] Varicella (varivax)(chicken pox) 2003-06-29 00:00:00 Completed [facility] Polio (IPV/OPV) 2003-04-13 00:00:00 Completed [facility] Polio (IPV/OPV) 2003-04-13 00:00:00 Completed [facility] IPV 2003-04-13 00:00:00 Completed [facility] IPV 2003-04-13 00:00:00 Completed [facility] IPV 2003-04-13 00:00:00 Completed [facility] IPV 2003-04-13 00:00:00 Completed [facility] IPV 2003-04-13 00:00:00 Completed [facility] IPV 2003-04-13 00:00:00 Completed [facility] DTaP, Unspecified Formulation 2003-01-26 00:00:00 Completed [facility] Hep B, Adol or Pedi Dosage 2003-01-26 00:00:00 Completed [facility] HIB 4 Dose Schedule 2003-01-26 00:00:00 Completed [facility] Pneumococcal 7 Conjugate, PCV7 (Prevnar7) 2003-01-26 00:00:00 Completed [facility] DTaP, Unspecified Formulation 2003-01-26 00:00:00 Completed [facility] Hep B, Adol or Pedi Dosage 2003-01-26 00:00:00 Completed [facility] HIB 4 Dose Schedule 2003-01-26 00:00:00 Completed [facility] Pneumococcal 7 Conjugate, PCV7 (Prevnar7) 2003-01-26 00:00:00 Completed [facility] DTaP, Unspecified Formulation 2003-01-26 00:00:00 Completed [facility] Hep B, Adol or Pedi Dosage 2003-01-26 00:00:00 Completed [facility] HIB 4 Dose Schedule 2003-01-26 00:00:00 Completed [facility] Pneumococcal 7 Conjugate, PCV7 (Prevnar7) 2003-01-26 00:00:00 Completed [facility] DTaP, Unspecified Formulation 2003-01-26 00:00:00 Completed [facility] Hep B, Adol or Pedi Dosage 2003-01-26 00:00:00 Completed [facility] HIB 4 Dose Schedule 2003-01-26 00:00:00 Completed [facility] Pneumococcal 7 Conjugate, PCV7 (Prevnar7) 2003-01-26 00:00:00 Completed [facility] DTaP, Unspecified Formulation 2003-01-26 00:00:00 Completed [facility] Hep B, Adol or Pedi Dosage 2003-01-26 00:00:00 Completed [facility] HIB 4 Dose Schedule 2003-01-26 00:00:00 Completed [facility] Pneumococcal 7 Conjugate, PCV7 (Prevnar7) 2003-01-26 00:00:00 Completed [facility] DTaP, Unspecified Formulation 2003-01-26 00:00:00 Completed [facility] Hep B, Adol or Pedi Dosage 2003-01-26 00:00:00 Completed [facility] HIB 4 Dose Schedule 2003-01-26 00:00:00 Completed [facility] Pneumococcal 7 Conjugate, PCV7 (Prevnar7) 2003-01-26 00:00:00 Completed [facility] HIB 4 Dose Schedule 2002 00:00:00 Completed [facility] HIB 4 Dose Schedule 2002 00:00:00 Completed [facility] HIB 4 Dose Schedule 2002 00:00:00 Completed [facility] HIB 4 Dose Schedule 2002 00:00:00 Completed [facility] HIB 4 Dose Schedule 2002 00:00:00 Completed [facility] HIB 4 Dose Schedule 2002 00:00:00 Completed [facility] DTaP, Unspecified Formulation 2002 00:00:00 Completed [facility] HIB 4 Dose Schedule 2002 00:00:00 Completed [facility] Pneumococcal 7 Conjugate, PCV7 (Prevnar7) 2002 00:00:00 Completed [facility] IPV 2002 00:00:00 Completed [facility] DTaP, Unspecified Formulation 2002 00:00:00 Completed [facility] HIB 4 Dose Schedule 2002 00:00:00 Completed [facility] Pneumococcal 7 Conjugate, PCV7 (Prevnar7) 2002 00:00:00 Completed [facility] IPV 2002 00:00:00 Completed [facility] DTaP, Unspecified Formulation 2002 00:00:00 Completed [facility] HIB 4 Dose Schedule 2002 00:00:00 Completed [facility] Pneumococcal 7 Conjugate, PCV7 (Prevnar7) 2002 00:00:00 Completed [facility] IPV 2002 00:00:00 Completed [facility] DTaP, Unspecified Formulation 2002 00:00:00 Completed [facility] HIB 4 Dose Schedule 2002 00:00:00 Completed [facility] Pneumococcal 7 Conjugate, PCV7 (Prevnar7) 2002 00:00:00 Completed [facility] IPV 2002 00:00:00 Completed [facility] DTaP, Unspecified Formulation 2002 00:00:00 Completed [facility] HIB 4 Dose Schedule 2002 00:00:00 Completed [facility] Pneumococcal 7 Conjugate, PCV7 (Prevnar7) 2002 00:00:00 Completed [facility] IPV 2002 00:00:00 Completed [facility] DTaP, Unspecified Formulation 2002 00:00:00 Completed [facility] HIB 4 Dose Schedule 2002 00:00:00 Completed [facility] Pneumococcal 7 Conjugate, PCV7 (Prevnar7) 2002 00:00:00 Completed [facility] IPV 2002 00:00:00 Completed [facility] DTaP, Unspecified Formulation 2002 00:00:00 Completed [facility] Hep B, Adol or Pedi Dosage 2002 00:00:00 Completed [facility] HIB 4 Dose Schedule 2002 00:00:00 Completed [facility] Pneumococcal 7 Conjugate, PCV7 (Prevnar7) 2002 00:00:00 Completed [facility] IPV 2002 00:00:00 Completed [facility] DTaP, Unspecified Formulation 2002 00:00:00 Completed [facility] Hep B, Adol or Pedi Dosage 2002 00:00:00 Completed [facility] HIB 4 Dose Schedule 2002 00:00:00 Completed [facility] Pneumococcal 7 Conjugate, PCV7 (Prevnar7) 2002 00:00:00 Completed [facility] IPV 2002 00:00:00 Completed [facility] DTaP, Unspecified Formulation 2002 00:00:00 Completed [facility] Hep B, Adol or Pedi Dosage 2002 00:00:00 Completed [facility] HIB 4 Dose Schedule 2002 00:00:00 Completed [facility] Pneumococcal 7 Conjugate, PCV7 (Prevnar7) 2002 00:00:00 Completed [facility] IPV 2002 00:00:00 Completed [facility] DTaP, Unspecified Formulation 2002 00:00:00 Completed [facility] Hep B, Adol or Pedi Dosage 2002 00:00:00 Completed [facility] HIB 4 Dose Schedule 2002 00:00:00 Completed [facility] Pneumococcal 7 Conjugate, PCV7 (Prevnar7) 2002 00:00:00 Completed [facility] IPV 2002 00:00:00 Completed [facility] DTaP, Unspecified Formulation 2002 00:00:00 Completed [facility] Hep B, Adol or Pedi Dosage 2002 00:00:00 Completed [facility] HIB 4 Dose Schedule 2002 00:00:00 Completed [facility] Pneumococcal 7 Conjugate, PCV7 (Prevnar7) 2002 00:00:00 Completed [facility] IPV 2002 00:00:00 Completed [facility] DTaP, Unspecified Formulation 2002 00:00:00 Completed [facility] Hep B, Adol or Pedi Dosage 2002 00:00:00 Completed [facility] HIB 4 Dose Schedule 2002 00:00:00 Completed [facility] Pneumococcal 7 Conjugate, PCV7 (Prevnar7) 2002 00:00:00 Completed [facility] IPV 2002 00:00:00 Completed [facility] Hep B, Adol or Pedi Dosage 2002 00:00:00 Completed [facility] Hep B, Adol or Pedi Dosage 2002 00:00:00 Completed [facility] DTaP, Unspecified Formulation Unknown Completed [facility] DTaP, Unspecified Formulation Unknown Completed [facility] DTaP, Unspecified Formulation Unknown Completed [facility] DTaP, Unspecified Formulation Unknown Completed [facility] DTaP, Unspecified Formulation Unknown Completed [facility] Influenza Virus Vaccine Quad .5 mL IM 6+ MO (FLUZONE/FLULAVAL/FL UARIX) Unknown Completed [facility] Influenza Virus Vaccine Quad Nasal (Flumist) Unknown Completed [facility] Flu Trivalent Unknown [facility] Influenza Virus Vaccine - Whole Unknown Completed [facility] Influenza Virus Vaccine Nasal Unknown Completed [facility] Influenza Virus Vaccine Nasal Unknown Completed [facility] HEPATITIS A Unknown Completed [facility] HEPATITIS A Unknown Completed [facility] Hep B, Adol or Pedi Dosage Unknown Completed [facility] Hep B, Adol or Pedi Dosage Unknown Completed [facility] HIB 4 Dose Schedule Unknown Completed [facility] HIB 4 Dose Schedule Unknown Completed [facility] HIB 4 Dose Schedule Unknown Completed [facility] HIB 4 Dose Schedule Unknown Completed [facility] HIB 4 Dose Schedule Unknown Completed [facility] HPV Unknown Completed [facility] HPV Unknown Completed [facility] HPV Unknown Completed [facility] Meningococcal Polysaccharide (groups A, C, Y and W-135) conjugate vaccine (MCV4P) Unknown Completed [facility] Meningococcal Polysaccharide (groups A, C, Y and W-135) conjugate vaccine (MCV4P) Unknown Completed [facility] Meningococcal B, OMV Unknown Completed [facility] MMR Unknown Completed [facility] Proquad (MMR/VARICELLA) Unknown Completed [facility] Pneumococcal 7 Conjugate, PCV7 (Prevnar7) Unknown Completed [facility] Pneumococcal 7 Conjugate, PCV7 (Prevnar7) Unknown Completed [facility] Pneumococcal 7 Conjugate, PCV7 (Prevnar7) Unknown Completed [facility] Pneumococcal 7 Conjugate, PCV7 (Prevnar7) Unknown Completed [facility] IPV Unknown Completed [facility] IPV Unknown Completed [facility] IPV Unknown Completed [facility] IPV Unknown Completed [facility] TDAP Unknown Completed [facility] Varicella (varivax)(chicken pox) Unknown Completed [facility] Influenza Virus Vaccine Unknown Completed [facility] DTaP, Unspecified Formulation Unknown Completed [facility] DTaP, Unspecified Formulation Unknown Completed [facility] DTaP, Unspecified Formulation Unknown Completed [facility] DTaP, Unspecified Formulation Unknown Completed [facility] DTaP, Unspecified Formulation Unknown Completed [facility] Influenza Virus Vaccine Quad .5 mL IM 6+ MO (FLUZONE/FLULAVAL/FL UARIX) Unknown Completed [facility] Influenza Virus Vaccine Quad Nasal (Flumist) Unknown Completed [facility] Flu Trivalent Unknown [facility] Flu [facility]rivalent Unknown [facility] Influenza Virus Vaccine - Whole Unknown Completed [facility] Influenza Virus Vaccine Nasal Unknown Completed [facility] Influenza Virus Vaccine Nasal Unknown Completed [facility] HEPATITIS A Unknown Completed [facility] HEPATITIS A Unknown Completed [facility] Hep B, Adol or Pedi Dosage Unknown Completed [facility] Hep B, Adol or Pedi Dosage Unknown Completed [facility] HIB 4 Dose Schedule Unknown Completed [facility] HIB 4 Dose Schedule Unknown Completed [facility] HIB 4 Dose Schedule Unknown Completed [facility] HIB 4 Dose Schedule Unknown Completed [facility] HIB 4 Dose Schedule Unknown Completed [facility] HPV Unknown Completed [facility] HPV Unknown Completed [facility] HPV Unknown Completed [facility] Meningococcal Polysaccharide (groups A, C, Y and W-135) conjugate vaccine (MCV4P) Unknown Completed [facility] Meningococcal Polysaccharide (groups A, C, Y and W-135) conjugate vaccine (MCV4P) Unknown Completed [facility] Meningococcal B, OMV Unknown Completed [facility] MMR Unknown Completed [facility] Proquad (MMR/VARICELLA) Unknown Completed [facility] Pneumococcal 7 Conjugate, PCV7 (Prevnar7) Unknown Completed [facility] Pneumococcal 7 Conjugate, PCV7 (Prevnar7) Unknown Completed [facility] Pneumococcal 7 Conjugate, PCV7 (Prevnar7) Unknown Completed [facility] Pneumococcal 7 Conjugate, PCV7 (Prevnar7) Unknown Completed [facility] IPV Unknown Completed [facility] IPV Unknown Completed [facility] IPV Unknown Completed [facility] IPV Unknown Completed [facility] TDAP Unknown Completed [facility] Varicella (varivax)(chicken pox) Unknown Completed [facility] Influenza Virus Vaccine Unknown Completed [facility] DTaP, Unspecified Formulation Unknown Completed [facility] DTaP, Unspecified Formulation Unknown Completed [facility] DTaP, Unspecified Formulation Unknown Completed [facility] DTaP, Unspecified Formulation Unknown Completed [facility] DTaP, Unspecified Formulation Unknown Completed [facility] Influenza Virus Vaccine Quad .5 mL IM 6+ MO (FLUZONE/FLULAVAL/FL UARIX) Unknown Completed [facility] Influenza Virus Vaccine Quad Nasal (Flumist) Unknown Completed [facility] Flu Trivalent Unknown [facility] Flu [facility]rivalent Unknown [facility] Influenza Virus Vaccine - Whole Unknown Completed [facility] Influenza Virus Vaccine Nasal Unknown Completed [facility] Influenza Virus Vaccine Nasal Unknown Completed [facility] HEPATITIS A Unknown Completed [facility] HEPATITIS A Unknown Completed [facility] Hep B, Adol or Pedi Dosage Unknown Completed [facility] Hep B, Adol or Pedi Dosage Unknown Completed [facility] HIB 4 Dose Schedule Unknown Completed [facility] HIB 4 Dose Schedule Unknown Completed [facility] HIB 4 Dose Schedule Unknown Completed [facility] HIB 4 Dose Schedule Unknown Completed [facility] HIB 4 Dose Schedule Unknown Completed [facility] HPV Unknown Completed [facility] HPV Unknown Completed [facility] HPV Unknown Completed [facility] Meningococcal Polysaccharide (groups A, C, Y and W-135) conjugate vaccine (MCV4P) Unknown Completed [facility] Meningococcal Polysaccharide (groups A, C, Y and W-135) conjugate vaccine (MCV4P) Unknown Completed [facility] Meningococcal B, OMV Unknown Completed [facility] MMR Unknown Completed [facility] Proquad (MMR/VARICELLA) Unknown Completed [facility] Pneumococcal 7 Conjugate, PCV7 (Prevnar7) Unknown Completed [facility] Pneumococcal 7 Conjugate, PCV7 (Prevnar7) Unknown Completed [facility] Pneumococcal 7 Conjugate, PCV7 (Prevnar7) Unknown Completed [facility] Pneumococcal 7 Conjugate, PCV7 (Prevnar7) Unknown Completed [facility] IPV Unknown Completed [facility] IPV Unknown Completed [facility] IPV Unknown Completed [facility] IPV Unknown Completed [facility] TDAP Unknown Completed [facility] Varicella (varivax)(chicken pox) Unknown Completed [facility] Influenza Virus Vaccine Unknown Completed [facility] DTaP, Unspecified Formulation Unknown Completed [facility] DTaP, Unspecified Formulation Unknown Completed [facility] DTaP, Unspecified Formulation Unknown Completed [facility] DTaP, Unspecified Formulation Unknown Completed [facility] DTaP, Unspecified Formulation Unknown Completed [facility] Influenza Virus Vaccine Quad .5 mL IM 6+ MO (FLUZONE/FLULAVAL/FL UARIX) Unknown Completed [facility] Influenza Virus Vaccine Quad Nasal (Flumist) Unknown Completed [facility] Flu Trivalent Unknown [facility] Flu Trivalent Unknown [facility] Influenza Virus Vaccine - Whole Unknown Completed [facility] Influenza Virus Vaccine Nasal Unknown Completed [facility] Influenza Virus Vaccine Nasal Unknown Completed [facility] HEPATITIS A Unknown Completed [facility] HEPATITIS A Unknown Completed [facility] Hep B, Adol or Pedi Dosage Unknown Completed [facility] Hep B, Adol or Pedi Dosage Unknown Completed [facility] HIB 4 Dose Schedule Unknown Completed [facility] HIB 4 Dose Schedule Unknown Completed [facility] HIB 4 Dose Schedule Unknown Completed [facility] HIB 4 Dose Schedule Unknown Completed [facility] HIB 4 Dose Schedule Unknown Completed [facility] HPV Unknown Completed [facility] HPV Unknown Completed [facility] HPV Unknown Completed [facility] Meningococcal Polysaccharide (groups A, C, Y and W-135) conjugate vaccine (MCV4P) Unknown Completed [facility] Meningococcal Polysaccharide (groups A, C, Y and W-135) conjugate vaccine (MCV4P) Unknown Completed [facility] Meningococcal B, OMV Unknown Completed [facility] MMR Unknown Completed [facility] Proquad (MMR/VARICELLA) Unknown Completed [facility] Pneumococcal 7 Conjugate, PCV7 (Prevnar7) Unknown Completed [facility] Pneumococcal 7 Conjugate, PCV7 (Prevnar7) Unknown Completed [facility] Pneumococcal 7 Conjugate, PCV7 (Prevnar7) Unknown Completed [facility] Pneumococcal 7 Conjugate, PCV7 (Prevnar7) Unknown Completed [facility] IPV Unknown Completed [facility] IPV Unknown Completed [facility] IPV Unknown Completed [facility] IPV Unknown Completed [facility] TDAP Unknown Completed [facility] Varicella (varivax)(chicken pox) Unknown Completed [facility] Influenza Virus Vaccine Unknown Completed [facility] DTaP, Unspecified Formulation Unknown Completed [facility] DTaP, Unspecified Formulation Unknown Completed [facility] DTaP, Unspecified Formulation Unknown Completed [facility] DTaP, Unspecified Formulation Unknown Completed [facility] DTaP, Unspecified Formulation Unknown Completed [facility] Influenza Virus Vaccine Quad .5 mL IM 6+ MO (FLUZONE/FLULAVAL/FL UARIX) Unknown Completed [facility] Influenza Virus Vaccine Quad Nasal (Flumist) Unknown Completed [facility] Flu Trivalent Unknown [facility] Flu Trivalent Unknown [facility] Influenza Virus Vaccine - Whole Unknown Completed [facility] Influenza Virus Vaccine Nasal Unknown Completed [facility] Influenza Virus Vaccine Nasal Unknown Completed [facility] HEPATITIS A Unknown Completed [facility] HEPATITIS A Unknown Completed [facility] Hep B, Adol or Pedi Dosage Unknown Completed [facility] Hep B, Adol or Pedi Dosage Unknown Completed [facility] HIB 4 Dose Schedule Unknown Completed [facility] HIB 4 Dose Schedule Unknown Completed [facility] HIB 4 Dose Schedule Unknown Completed [facility] HIB 4 Dose Schedule Unknown Completed [facility] HIB 4 Dose Schedule Unknown Completed [facility] HPV Unknown Completed [facility] HPV Unknown Completed [facility] HPV Unknown Completed [facility] Meningococcal Polysaccharide (groups A, C, Y and W-135) conjugate vaccine (MCV4P) Unknown Completed [facility] Meningococcal Polysaccharide (groups A, C, Y and W-135) conjugate vaccine (MCV4P) Unknown Completed [facility] Meningococcal B, OMV Unknown Completed [facility] MMR Unknown Completed [facility] Proquad (MMR/VARICELLA) Unknown Completed [facility] Pneumococcal 7 Conjugate, PCV7 (Prevnar7) Unknown Completed [facility] Pneumococcal 7 Conjugate, PCV7 (Prevnar7) Unknown Completed [facility] Pneumococcal 7 Conjugate, PCV7 (Prevnar7) Unknown Completed [facility] Pneumococcal 7 Conjugate, PCV7 (Prevnar7) Unknown Completed [facility] IPV Unknown Completed [facility] IPV Unknown Completed [facility] IPV Unknown Completed [facility] IPV Unknown Completed [facility] TDAP Unknown Completed [facility] Varicella (varivax)(chicken pox) Unknown Completed [facility] Influenza Virus Vaccine Unknown Completed [facility] DTaP, Unspecified Formulation Unknown Completed [facility] DTaP, Unspecified Formulation Unknown Completed [facility] DTaP, Unspecified Formulation Unknown Completed [facility] DTaP, Unspecified Formulation Unknown Completed [facility] DTaP, Unspecified Formulation Unknown Completed [facility] Influenza Virus Vaccine Quad .5 mL IM 6+ MO (FLUZONE/FLULAVAL/FL UARIX) Unknown Completed [facility] Influenza Virus Vaccine Quad Nasal (Flumist) Unknown Completed [facility] Flu Trivalent Unknown [facility] Flu Trivalent Unknown [facility] Influenza Virus Vaccine - Whole Unknown Completed [facility] Influenza Virus Vaccine Nasal Unknown Completed [facility] Influenza Virus Vaccine Nasal Unknown Completed [facility] HEPATITIS A Unknown Completed [facility] HEPATITIS A Unknown Completed [facility] Hep B, Adol or Pedi Dosage Unknown Completed [facility] Hep B, Adol or Pedi Dosage Unknown Completed [facility] HIB 4 Dose Schedule Unknown Completed [facility] HIB 4 Dose Schedule Unknown Completed [facility] HIB 4 Dose Schedule Unknown Completed [facility] HIB 4 Dose Schedule Unknown Completed [facility] HIB 4 Dose Schedule Unknown Completed [facility] HPV Unknown Completed [facility] HPV Unknown Completed [facility] HPV Unknown Completed [facility] Meningococcal Polysaccharide (groups A, C, Y and W-135) conjugate vaccine (MCV4P) Unknown Completed [facility] Meningococcal Polysaccharide (groups A, C, Y and W-135) conjugate vaccine (MCV4P) Unknown Completed [facility] Meningococcal B, OMV Unknown Completed [facility] MMR Unknown Completed [facility] Proquad (MMR/VARICELLA) Unknown Completed [facility] Pneumococcal 7 Conjugate, PCV7 (Prevnar7) Unknown Completed [facility] Pneumococcal 7 Conjugate, PCV7 (Prevnar7) Unknown Completed [facility] Pneumococcal 7 Conjugate, PCV7 (Prevnar7) Unknown Completed [facility] Pneumococcal 7 Conjugate, PCV7 (Prevnar7) Unknown Completed [facility] IPV Unknown Completed [facility] IPV Unknown Completed [facility] IPV Unknown Completed [facility] IPV Unknown Completed [facility] TDAP Unknown Completed [facility] Varicella (varivax)(chicken pox) Unknown Completed [facility] Influenza Virus Vaccine Unknown Completed [facility] DTaP, Unspecified Formulation Unknown Completed [facility] DTaP, Unspecified Formulation Unknown Completed [facility] DTaP, Unspecified Formulation Unknown Completed [facility] DTaP, Unspecified Formulation Unknown Completed [facility] DTaP, Unspecified Formulation Unknown Completed [facility] Influenza Virus Vaccine Quad .5 mL IM 6+ MO (FLUZONE/FLULAVAL/FL UARIX) Unknown Completed [facility] Influenza Virus Vaccine Quad Nasal (Flumist) Unknown Completed [facility] Flu Trivalent Unknown [facility] Flu Trivalent Unknown [facility] Influenza Virus Vaccine - Whole Unknown Completed [facility] Influenza Virus Vaccine Nasal Unknown Completed [facility] Influenza Virus Vaccine Nasal Unknown Completed [facility] HEPATITIS A Unknown Completed [facility] HEPATITIS A Unknown Completed [facility] Hep B, Adol or Pedi Dosage Unknown Completed [facility] Hep B, Adol or Pedi Dosage Unknown Completed [facility] HIB 4 Dose Schedule Unknown Completed [facility] HIB 4 Dose Schedule Unknown Completed [facility] HIB 4 Dose Schedule Unknown Completed [facility] HIB 4 Dose Schedule Unknown Completed [facility] HIB 4 Dose Schedule Unknown Completed [facility] HPV Unknown Completed [facility] HPV Unknown Completed [facility] HPV Unknown Completed [facility] Meningococcal Polysaccharide (groups A, C, Y and W-135) conjugate vaccine (MCV4P) Unknown Completed [facility] Meningococcal Polysaccharide (groups A, C, Y and W-135) conjugate vaccine (MCV4P) Unknown Completed [facility] Meningococcal B, OMV Unknown Completed [facility] MMR Unknown Completed [facility] Proquad (MMR/VARICELLA) Unknown Completed [facility] Pneumococcal 7 Conjugate, PCV7 (Prevnar7) Unknown Completed [facility] Pneumococcal 7 Conjugate, PCV7 (Prevnar7) Unknown Completed [facility] Pneumococcal 7 Conjugate, PCV7 (Prevnar7) Unknown Completed [facility] Pneumococcal 7 Conjugate, PCV7 (Prevnar7) Unknown Completed [facility] IPV Unknown Completed [facility] IPV Unknown Completed [facility] IPV Unknown Completed [facility] IPV Unknown Completed [facility] TDAP Unknown Completed [facility] Varicella (varivax)(chicken pox) Unknown Completed [facility] Influenza Virus Vaccine Unknown Completed [facility] DTaP, Unspecified Formulation Unknown Completed [facility] DTaP, Unspecified Formulation Unknown Completed [facility] DTaP, Unspecified Formulation Unknown [facility] [facility] DTaP, Unspecified Formulation Unknown Completed [facility] DTaP, Unspecified Formulation Unknown Completed [facility] Influenza Virus Vaccine Quad .5 mL IM 6+ MO (FLUZONE/FLULAVAL/FL UARIX) Unknown Completed [facility] Influenza Virus Vaccine Quad Nasal (Flumist) Unknown Completed [facility] Flu Trivalent Unknown Completed [facility] Flu Trivalent Unknown Completed [facility] Influenza Virus Vaccine - Whole Unknown Completed [facility] Influenza Virus Vaccine Nasal Unknown Completed [facility] Influenza Virus Vaccine Nasal Unknown Completed [facility] HEPATITIS A Unknown Completed [facility] HEPATITIS A Unknown Completed [facility] Hep B, Adol or Pedi Dosage Unknown Completed [facility] Hep B, Adol or Pedi Dosage Unknown Completed [facility] HIB 4 Dose Schedule Unknown Completed [facility] HIB 4 Dose Schedule Unknown Completed [facility] HIB 4 Dose Schedule Unknown Completed [facility] HIB 4 Dose Schedule Unknown Completed [facility] HIB 4 Dose Schedule Unknown Completed [facility] HPV Unknown Completed [facility] HPV Unknown Completed [facility] HPV Unknown Completed [facility] Meningococcal Polysaccharide (groups A, C, Y and W-135) conjugate vaccine (MCV4P) Unknown Completed [facility] Meningococcal Polysaccharide (groups A, C, Y and W-135) conjugate vaccine (MCV4P) Unknown Completed [facility] Meningococcal B, OMV Unknown Completed [facility] MMR Unknown Completed [facility] Proquad (MMR/VARICELLA) Unknown Completed [facility] Pneumococcal 7 Conjugate, PCV7 (Prevnar7) Unknown Completed [facility] Pneumococcal 7 Conjugate, PCV7 (Prevnar7) Unknown Completed [facility] Pneumococcal 7 Conjugate, PCV7 (Prevnar7) Unknown Completed [facility] Pneumococcal 7 Conjugate, PCV7 (Prevnar7) Unknown Completed [facility] IPV Unknown Completed [facility] IPV Unknown Completed [facility] IPV Unknown Completed [facility] IPV Unknown Completed [facility] TDAP Unknown Completed [facility] Varicella (varivax)(chicken pox) Unknown Completed [facility] Influenza Virus Vaccine Unknown Completed [facility] Vital Signs Vital Name Observation Time Observation Value Comments S ource Systolic blood pressure 2023-02-22 15:19:00 137 mm[Hg] [facility] Diastolic blood pressure 2023-02-22 15:19:00 89 mm[Hg] [facility] Heart rate 2023-02-22 15:19:00 94 /min [facility] Respiratory rate 2023-02-22 15:19:00 18 /min [facility] Body height 2023-02-22 15:19:00 154.9 cm [facility] 2023-02-22 15:19:[address] [facility] BMI 2023-02-22 15:19:00 31.18 kg/m2 Univ [facility] Systolic blood pressure 2022-04-27 16:38:00 128 mm[Hg] [facility] Diastolic blood pressure 2022-04-27 16:38:00 88 mm[Hg] [facility] Heart rate 2022-04-27 16:38:00 70 /min [facility] Body temperature 2022-04-27 16:38:00 36.67 Usha [facility] Respiratory rate 2022-04-27 16:38:00 16 /min [facility] Body height 2022-04-27 16:38:00 157.5 cm Univ [facility] Body weight 2022-04-27 16:38:[address] [facility] BMI 2022-04-27 16:38:00 28.92 kg/m2 [facility] height 2022-03-29 15:06:[address] [facility] Body weight 2022-03-29 15:06:[address] [facility] BMI 2022-03-29 15:06:00 26.36 kg/m2 [facility] Systolic blood pressure 2021-04-21 16:52:00 121 mm[Hg] [facility] Diastolic blood pressure 2021-04-21 16:52:00 81 mm[Hg] [facility] Heart rate 2021-04-21 16:52:00 98 /min Un[facility] Body temperature 2021-04-21 16:52:00 36.72 Usha [facility] Respiratory rate 2021-04-21 16:52:00 18 /min [facility] Body height 2021-04-21 16:52:[address] [facility] Body weight 2021-04-21 16:52:[address] [facility] BMI 2021-04-21 16:52:00 26.36 kg/m2 [facility] Body mass index (BMI) [Percentile] Per age and sex 2021-04-21 16:52:00 86.28 % [place] [facility] Procedures Procedure Date / Time Performed Performing Clinician Source US PELVIS LIMITED 2023-05-24 20:54:46 [facility], MEDICAL AND SURGICAL PROCEDURES 2023-02-22 06:01:00 Doctor Unassigned, [place] [facility] PATIENT FINANCIAL POLICY 2022-04-27 16:28:43 Doctor Unassigned, [place] [facility] CONSENT/REFUSAL FOR DIAGNOSIS AND TREATMENT 2022-03-29 14:45:55 Doctor Unassigned, [place] [facility] CONSENT FOR CONTRACEPTION 2021-04-21 06:01:00 Doctor Unassigned, [place] [facility] Plan of Care Planned Activity Planned Date Details Comments Source Medication 2023-06-02 00:00:00 norethindron e-e.est radioL-iron (LOESTRIN FE 1/20) 1 mg-20 mcg (21)/75 mg (7) tablet [code = 9529861] [facility] Encounters Start Date/Time End Date/Time Encounter Type Admission Type Attending Clinicians Care Facility Care Department Encounter ID Source 2023-09-19 11:00:00 2023-09-19 11:00:00 Outpatient R RICHIE ZAPIEN [facility] [id number] [facility] 2023-05-28 00:00:00 2023-05-28 00:00:00 Case Management Richie Zapien [facility] 1.2.840.114 350.1.13.10 4.2.7.2.686 [id number] 134 [id number] [facility] 2023-05-24 15:13:47 2023-05-24 23:59:00 Outpatient R RICHIE ZAPIEN [facility] [id number] [facility] 2023-05-24 15:00:00 2023-05-24 23:59:00 Hospital Encounter Richie Zapien [facility] 1.2840.114 350.1.13.10 4.2.7.2.686 [id number] [facility] 2023-05-24 00:00:00 2023-05-24 00:00:00 [facility] 1.2.840.114 350.1.13.10 4.2.7.2.686 [id number] 134 [id number] [facility] 2023-05-21 00:00:00 2023-05-21 00:00:00 [facility] 1.2.840.114 350.1.13.10 4.2.7.2.686 [id number] 134 [id number] [facility] 2023-05-20 11:00:00 2023-05-20 12:15:04 Outpatient R RICHIE ZAPIEN [facility] [id number] [facility] 2023-05-17 00:00:00 2023-05-17 00:00:00 Telephone Richie Zapien [facility] 1.2840.114 350.1.13.10 4.2.7.2.686 [id number] 134 [id number] [facility] 2023-04-30 13:00:00 2023-04-30 13:00:00 Outpatient R RICHIE ZAPIEN [facility] [id number] [facility] 2023-02-22 09:00:00 2023-02-22 09:30:00 Office Visit ZapienRichie [facility] 1.2.840.114 350.1.13.10 4.2.7.2.686 [id number] 134 [id number] [facility] 2023-02-22 09:00:00 2023-02-22 09:00:00 Outpatient RICHIE BLANC [facility] [id number] [facility] 2023-02-22 00:00:00 2023-02-22 00:00:00 Orders Only Doctor Unassigned, [place] [facility] 1.840.114 350.1.13.10 4.2.7.2.686 [id number] [facility] 2023-02-01 09:00:00 2023-02-01 09:00:00 Outpatient RICHIE BLANC [facility] [id number] [facility] 2022-08-03 16:00:00 2022-08-03 16:00:00 Outpatient ERICKSON MURRAY [facility] [id number] [facility] 2022-08-02 00:00:00 2022-08-02 00:00:00 Pre Visit Outreach Hieuegno Mary Carmen ALEMAN 1..840.114 350.1.13.10 4.2.7.2.686 [id number] [facility] 2022-06-28 13:00:00 2022-06-28 13:00:00 Outpatient ELINOR GUNDERSON [facility] [id number] [facility] 2022-04-30 00:00:00 2022-04-30 00:00:00 [facility] 1.840.114 350.1.13.10 4.2.7.2.686 [id number] 134 [id number] [facility] 2022-04-27 09:30:00 2022-04-27 10:52:26 Outpatient RICHIE BLANC [facility] [id number] [facility] 2022-04-27 09:30:00 2022-04-27 10:52:26 Office Visit Richie Zapien [facility] 1.0.114 350.1.13.10 4.2.7.2.686 [id number] [facility] 2022-04-27 00:00:00 2022-04-27 00:00:00 Orders Only Doctor Unassigned, [place] [facility] 1.2840.114 350.1.13.10 4.2.7.2.686 [id number] [facility] 2022-04-20 00:00:00 2022-04-20 00:00:00 Pre Visit Outreach Kaylee Goldberg 1.0.114 350.1.13.10 4.2.7.2.686 [id number] [facility] 2022-03-29 09:00:00 2022-03-29 09:17:35 Outpatient R SHU [facility] [id number] [facility] 2022-03-29 09:00:00 2022-03-29 09:17:35 [facility] 1..114 350.1.13.10 4.2.7.2.686 [id number] [facility] 2022-03-29 00:00:00 2022-03-29 00:00:00 Orders Only Doctor Unassigned, [place] [facility] 1.0.114 350.1.13.10 4.2.7.2.686 [id number] [facility] 2021-04-21 10:30:00 2021-04-21 11:46:04 Office Visit Richie Zapien [facility] 1..114 350.1.13.10 4.2.7.2.686 [id number] 134 [id number] [facility] 2021-04-21 10:30:00 2021-04-21 11:46:04 Outpatient Wendie ZAPIEN [facility] [id number] [facility] 2021-04-21 10:30:00 2021-04-21 10:30:00 Outpatient Wendie CURRY [facility] [id number] [facility] 2021-04-21 00:00:00 2021-04-21 00:00:00 Orders Only Doctor Unassigned, [place] [facility] 1.2840.114 350.1.13.10 4.2.7.2.686 [id number] [facility] 2021-03-26 00:00:00 2021-03-26 00:00:00 Refill [facility] 1.2.840.114 350.1.13.10 4.2.7.2.686 [id number] 134 [id number] [facility] 2020-12-26 10:44:27 2020-12-26 11:14:27 Office Visit [facility] 1.2.840.114 350.1.13.10 4.2.7.2.686 [id number] [facility] 2020-12-26 10:30:00 2020-12-26 10:30:00 Outpatient Wendie BAILEY [facility] [id number] [facility] 2020-12-26 10:30:00 2020-12-26 10:30:00 Outpatient Wendie BAILEY [facility] [id number] [facility] 2020-12-26 00:00:00 2020-12-26 00:00:00 Orders Only Doctor Unassigned, [place] [facility] 1.2840.114 350.1.13.10 4.2.7.2.686 [id number] [facility] 2020-11-28 15:12:43 2020-11-28 15:27:43 Brim Presser Visit 2, Adc [facility] 1.2840.114 350.1.13.10 4.2.7.2.686 [id number] [facility] 2020-11-28 14:11:07 2020-11-28 15:08:42 Office Visit Slime Bailey [facility] 1.20.114 350.1.13.10 4.2.7.2.686 [id number] [facility] 2020-11-28 14:00:00 2020-11-28 14:00:00 Outpatient Wendie BAILEY [facility] [id number] [facility] 2020-11-28 00:00:00 2020-11-28 00:00:00 Orders Only Doctor Unassigned, [place] [facility] 1..114 350.1.13.10 4.2.7.2.686 [id number] [facility] 2020-11-09 10:15:00 2020-11-09 10:15:00 [facility] [id number] 2020-08-10 09:10:43 2020-08-10 09:25:43 Office Visit Christiana Perez Erica Kroger, Kathleen [facility] 1..114 350.1.13.10 4.2.7.2.686 [id number] [facility] 2020-08-10 09:15:00 2020-08-10 09:15:00 Outpatient ANNALISA BARRAZA [facility] [id number] [facility] 2020-05-26 10:03:48 2020-05-26 10:23:03 Office Visit Christiana Perez Lindy Skye [facility] [place] [facility] 1.114 350.1.13.10 4.2.7.2.686 [id number] [facility] 2020-05-26 10:00:00 2020-05-26 10:00:00 Outpatient UMAIR CALLE [facility] [id number] [facility] 2020-05-26 00:00:00 2020-05-26 00:00:00 Letter (Out) Tracy Zheng [facility] 1.114 350.1.13.10 4.2.7.2.686 [id number] [facility] 2019-09-15 09:05:58 2019-09-15 09:37:26 Laboratory Only Lab, [facility] Office Building One 1.114 350.1.13.10 4.2.7.2.686 [id number] 2019-09-15 09:05:58 2019-09-15 09:37:26 Laboratory Only Lab, [facility] I K[facility] Office Building One 1.114 350.1.13.10 4.2.7.2.686 [id number] [facility] 2019-09-15 09:00:00 2019-09-15 09:00:00 Outpatient R [facility] [id number] [facility] 2018-10-24 10:10:09 2018-10-24 10:25:09 Brim Presser Visit 1, [facility] Lab Bridger Cortney [facility] 1.114 350.1.13.10 4.2.7.2.686 [id number] [facility] 2018-10-24 08:41:09 2018-10-24 09:43:42 Office Visit Cortney Sparks [facility] 1.2.840.114 350.1.13.10 4.2.7.2.686 [id number] 134 [id number] [facility] 2018-10-24 00:00:00 2018-10-24 00:00:00 Letter (Out) Cortney Sparks [facility] 1.2.840.114 350.1.13.10 4.2.7.2.686 [id number] 134 [id number] [facility] 2018-10-24 00:00:00 2018-10-24 00:00:00 Telephone Richie Zapien [facility] 1.2.840.114 350.1.13.10 4.2.7.2.686 [id number] [facility] Results Test Description Test Time Test Comments Results Resul t Comments Source US PELVIS LIMITED 2023-04-27 9 21:12:51 US PELVIS LIMITED 05/24/2023 3:42 PM History: small mass palpated on the left mons near left inguinal Comparison: None Technique an findings: Targeted limited grayscale and color Dopplerultrasound of the left inguinal region between the labia and pubic bonedemonstrates a superficial subcutaneous lobulated hypoechoic complex cysticstructure measuring 2.3 x 1.7 x 2.2 cm. A couple of other adjacent similarappearing lesions are noted measuring up to 0.9 cm. There is minimalvascularity, predominantly in the periphery of the lesion.There is no relation between these lesions and labial is demonstrated tosuggest hydrocele of colon of Nuck. [facility] CULTURE, ROUTINE 2022-08-25 0 12:44:11 SPECIMEN NUMBER: [id number] CULTURE, ROUTINE SPECIMEN NUMBER: [id number] SPECIMEN COMMENT: ABDOMEN SOURCE: ABDOMEN REPORT STATUS: FINAL DIRECT GRAM STAIN: NO WBCs SEEN NO BACTERIA SEEN FINAL REPORT: 09/03/2022 FEW NORMAL SKIN TAYLOR PRELIMINARY REPORT: 08/31/2022 FEW GRAM POSITIVE TAYLOR PRELIMINARY REPORT #2: 09/01/2022 FEW GRAM POSITIVE TAYLOR UNLESS OTHERWISE INDICATED, ALL TESTING PERFORMED AT [facility] [address] [place] [address] LOCOMOTIVE PIPE FITTER: OPAL LANGFORD M.D. [place] NUMBER [id number] [facility] [place]. [id number] Notes Date/Time Note Provider Source 2023-05-28 12:27:59 iqm+iJzwH5q94IN52USZ y2thbShIoy xSC8lb/9/SKzcBcxjDZw6p7x4i2XFf MPWF2358-67-41C72:27:59Formatt ing of this note might be different from the original.Please see result note.JENN BLANCO RN 05/28/2023 12:28 PM 55428-8Ksztususu encounter KzqyPE6221-89-54W72:28:15Telep wilda encounter NoteTXT1.2.840.873803.1.13.104 .2.7.2.809920|[id number] [facility] yqkk39454-8OrjrHKBGXZQRUJJUzff atted C-CDA narrative [id number] Blanco RN[address] IwgsJcsyaawujOlbtpnlqaYZFQ9874 998660XBXHEUIWXIXZMSDVIUORKD93 18-06-01T12:28:151.2.840.80727 0.1.72.3.15|1.2.840.261944.1.1 3.104.2.7.2.727879_[id number] Jenn Blanco RN [facility] 2023-05-27 08:38:02 ZunXU1PzatiHFS5D1fiA kUsq7D0Qhw Gx9OFf+zqAWU7XVaTGKjj/TsBp0LOy k7cB0307-08-99S06:38:02Formatt ing of this note might be different from the original.Lm on for pt to return call. Report has not been reviewed by Dr. Zapien. Once reviewed, we will call her with results and plan of care.JENN BLANCO RN 05/27/2023 8:39 AM 90185-9Rigquitvq encounter SafcGU0047-19-15Y95:39:59Telep wilda encounter NoteTXT1.2.840.005815.1.13.104 .2.7.2.364983|[id number] lable for patient jmvk18606-2DdyiAIHBKWDILRVHvxm atted C-CDA narrative [address] 772046JBHZUOEFUTZADWKBWNITWH01 18-06-00T08:39:591.2.840.60689 0.1.72.3.15|1.2.840.829968.1.1 3.104.2.7.2.727879_[id number] [facility] 2023-05-24 16:36:56 TfWNoUNeu+6U7gkF92GN nscivCWGQS 0JcRY2cY5k9JGs6ABSsGuWnBuqFwOX twdw8239-17-61C10:36:56Formatt ing of this note might be different from the original.Luis Ren is a 22 year old femalePatient would like to discuss ultrasound results, please call [phone] (home) 95620-6Fsiemubam encounter DvupFV5800-44-72O70:37:25Telep wilda encounter NoteTXT1.2.840.169360.1.13.104 .2.7.2.685953|[id number] lable for patient vffd38861-6CtqfZTFRWHBVGNABlfb atted C-CDA narrative pfjf852810964Wtlwnp [address]on[place]TX[address] 917577AJZWULSREPCXAEMPZHRWBT64 18-05-28T16:37:251.2.840.99636 0.1.72.3.15|1.2.840.223830.1.1 3.104.2.7.2.727879_[id number] Anson Robles [facility] 2023-05-21 13:28:13 GkxIzxnBqLvcpc7/c/UR EO/a/rFy+d ArGkpM1kEpNj9Fj43PXoBHjGcL2JLq mro97811-07-49J26:28:13Formatt ing of this note might be different from the original.Received 90 day refill request from [facility]. Request denied as patient has 3 month f/u for OCP.Chaim Anton RN 05/21/2023 1:29 PM 67845-3Kqslxhmay encounter RannWZ9773-36-29K53:30:00Telep wilda encounter NoteTXT1.2.840.695756.1.13.104 .2.7.2.257027|[id number] lab for patient ifqb58626-9SnkeWPBHKDSNROCYrph atted C-CDA narrative sijx396138271Pvrpggp Collins RN[address] 922106BZXFNFTRHJHOTIJLNMZLUL29 18-05-25T13:30:001.2.840.10028 0.1.72.3.15|1.2.840.239378.1.1 3.104.2.7.2.727879_[id number] Chaim Anton RN [facility] 2023-05-17 13:19:48 VZninjYV3LdOtD0MWbd1 n6Mds1EvBU o2KNpSJQDhxU4Ik0Tcno5mr5CNMngq zAg87164-52-70W67:19:48Formatt ing of this note might be different from the original.Spoke with patient, states that she had her nexplanon removed 01/2023, started cycle again March 2023. Had cycle like symptoms this month but no cycle yet. Patient c/o severe cramping and bump to left outer labia. Advised patient it would be best to be seen by provider. Patient verbalized understanding. Appt scheduled.Cecille Ramirez RN 05/17/2023 1:22 PM 52068-3Nlgpmqflf encounter FcfqBP2845-36-08S93:26:46Telep wilda encounter NoteTXT1.2.840.581826.1.13.104 .2.7.2.089925|[id number] lable for patient qvti27346-4FvtoXAWVJDHLDFHKkuu atted C-CDA narrative [id number] Stahl RN[address] PienVbuychiqpWkdnwjbzdXKOI8027 150713ENWOVIQHNYWSKCBYOCFZVO21 18-05-21T13:26:461.2.840.47417 0.1.72.3.15|1.2.840.548622.1.1 3.104.2.7.2.727879_[id number] Cecille Ramirez RN [facility] 2023-05-17 12:38:48 XhS4WWPcycfFJ2shouIt sT1o1vPUxO yVkliP0X6ndkte1YFywkXNahHpI7NY Kd2v7951-04-38R48:38:48Formatt ing of this note might be different from the original.Patient calling says since removing control she been cramping more and vaginal discomfort want to discuss. 84039-5Agfmrjfun encounter PrwrNX4152-06-52R38:39:58Telep wilda encounter NoteTXT1.2.840.116843.1.13.104 .2.7.2.263264|[id number] [facility] patient nykf28892-1ZewuMRTSUKWVDDMMafq atted C-CDA narrative vjiw222183503Zltis [address] QagrZyywfkazhXvihzgkkhSRJV2670 544550KOFEOZTWYMZXYBHFSVMEMH86 18-05-21T12:39:581.2.840.03648 0.1.72.3.15|1.2.840.911158.1.1 3.104.2.7.2.727879_[id number] Queenie Davenport [facility]"
[2023-05-29 02:23] LABS: Absolute Basophils 0.1 K/uL (0-0.5); Absolute Eosinophils 0.3 K/uL (0-0.5); Absolute Lymphocytes (CBC) 2.5 K/uL (0.7-4.9); Absolute Monocytes 1.2 K/uL (0.1-1.3); Absolute Neutrophil 10.7 K/uL (1.8-8.0); Basophils % 0.7 % (0-1.3); Eosinophils % 2.3 % (0-4.4); Hematocrit 34.7 % (36.0-45.0); Hemoglobin 11.7 g/dL (12.0-15.0); MCH 27.5 pg (27.0-35.0); MCHC 33.6 g/dL (32.0-36.0); MCV 81.6 fL (80-100); MPV 9.4 fL (7.6-11.3); Platelets 356 thou/uL (152-406); RBC Red Blood Cell Count 4.25 M/uL (3.86-4.86); Red Cell Distribution Width 13.4 % (12.1-15.2)
[2023-05-29] MEDS ORDERED: CODEINE 30MG/APAP 300MG TAB ONE (02:26)
[2023-05-29] MEDS ORDERED: KETOROLAC 30 MG/ML INJ ONE (02:26)
[2023-05-29] MEDS ORDERED: METOCLOPRAMIDE 10 MG/2mL INJ ONE (02:26)
[2023-05-29 02:31] LABS: Albumin 3.5 g/dL (3.4-5.0); Albumin/Globulin Ratio 0.8 (1.1-1.8); Anion Gap 8.8 mEq/L (5.0-15.0); Bilirubin Total 0.3 mg/dL (0.2-1.0); Globulin 4.5 g/dL (2.3-3.5); Potassium 3.8 mEq/L (3.5-5.1)
[2023-05-29 02:32] LABS: Sqamous Epithelial <5 /HPF (None Seen); Urine Bacteria <20 /HPF (<20); Urine Bilirubin NEGATIVE (Negative); Urine Blood 3+ (OVER) (Negative); Urine Clarity Extremely Turbid (Clear); Urine Color Light-Brown (Yellow); Urine Culture Reflex Order REFLEXED; Urine Glucose NEGATIVE (Negative); Urine Ketones NEGATIVE (Negative); Urine Microscopic Reflex YN ORDER UMIC; Urine Mucus Slight /HPF (None Seen); Urine Nitrite NEGATIVE (Negative); Urine Protein TRACE (Negative); Urine RBC <5 /HPF (None Seen); Urine Urobilinogen Normal (Normal); Urine pH 6.5 (5.0-7.0)
[2023-05-29 02:39] LABS: Thyroid Stimulating Hormone 2.82 uIU/mL (0.358-3.740)
--- NOTE | 2023-05-29 05:14 | ER ---
Nurse's Notes [facility] Name: Luis Puckett Age: 22 yrs Sex: Female : 2000 Arrival Date: 05/28/2023 Time: 23:43 Bed 11 Private MD: Diagnosis: Infectious gastroenteritis and colitis, unspecified;Acute enteritis Presentation: 05/28 00:28 Chief complaint: Patient states: right lower rib cage pain of 10 that radiates to pf1 back,onset 2 days. Coronavirus screen: Vaccine status: Patient reports receiving the 1st dose of the Covid vaccine. Client denies travel out of the [place] in the last 14 days. At this time, the client does not indicate any symptoms associated with coronavirus-19. Ebola Screen: Patient negative for fever greater than or equal to 101.5 degrees Fahrenheit, and additional compatible Ebola Virus Disease symptoms. Acute neurological deficit: none identified. Initial Sepsis Screen: Does the patient meet any 2 criteria? HR > 90 bpm. No. Patient's initial sepsis screen is negative. Does the patient have a suspected source of infection? No. Patient's initial sepsis screen is negative. Risk Assessment: Do you want to hurt yourself or someone else? Patient reports no desire to harm self or others. Onset of symptoms was May 27, 2023. 00:28 Method Of Arrival: Ambulatory pf1 00:28 Acuity: RUBI 3 pf1 Triage Assessment: 00:34 General: Appears in no apparent distress. comfortable, well groomed, well developed, pf1 Behavior is calm, cooperative, appropriate for age, quiet. Pain: Complains of pain in back and chest Pain currently is 8 out of 10 on a pain scale. 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 - Infectious Disease History:: Denies. - Family history:: not pertinent. - Social history:: Smoking status: Patient denies any tobacco usage or history of. Patient uses alcohol, occasionally. Patient/guardian denies using street drugs. Screenin:55 [facility] ED Fall Risk Assessment (Adult) History of falling in the last 3 months, pf1 including since admission No falls in past 3 months (0 pts) Confusion or Disorientation No (0 pts) Intoxicated or Sedated No (0 pts) Impaired Gait No (0 pts) Mobility Assist Device Used No (0 pt) Altered Elimination No (0 pt) Score/Fall Risk Level 0 - 2 = Low Risk Oriented to surroundings, Maintained a safe environment, Educated pt \T\ family on fall prevention, incl call for assistance when getting out of bed, Assessed \T\ reinforced patient's understanding of fall precautions, Provided non-skid footwear, Hourly rounding (assess needs \T\ fall precautionary measures) done, Used ambulatory aids as needed (educated on \T\ assisted with), Used gait belt as appropriate. 01:55 Abuse screen: Denies threats or abuse. Nutritional screening: No deficits noted. pf1 Tuberculosis screening: No symptoms or risk factors identified. Assessment: 01:55 General: Appears in no apparent distress. comfortable, well groomed, well developed, pf1 Behavior is calm, cooperative, appropriate for age, quiet. 01:55 Pain: Complains of pain in chest and back Pain radiates to back. Neuro: No deficits pf1 noted. Level of Consciousness is awake, alert, obeys commands, Oriented to person, place, time, situation. Cardiovascular: Reports chest pain, Capillary refill < 3 seconds Patient's skin is warm and dry. Respiratory: No deficits noted. Airway is patent Respiratory effort is even, unlabored, Respiratory pattern is regular, symmetrical, Breath sounds are clear bilaterally. GI: Abdomen is round non-distended. : No deficits noted. No signs and/or symptoms were reported regarding the genitourinary system. EENT: No deficits noted. No signs and/or symptoms were reported regarding the EENT system. 02:00 Pain: Pain began 2-3 days ago. pf1 03:00 Reassessment: Patient appears in no apparent distress at this time. Patient and/or pf1 family updated on plan of care and expected duration. Pain level reassessed. Patient is alert, oriented x 3, equal unlabored respirations, skin warm/dry/pink. Patient states symptoms have improved. 04:00 Reassessment: Patient appears in no apparent distress at this time. Patient and/or pf1 family updated on plan of care and expected duration. Pain level reassessed. Patient is alert, oriented x 3, equal unlabored respirations, skin warm/dry/pink. Patient states feeling better. Patient states symptoms have improved. 05:00 Reassessment: Patient appears in no apparent distress at this time. Patient and/or pf1 family updated on plan of care and expected duration. Pain level reassessed. Patient is alert, oriented x 3, equal unlabored respirations, skin warm/dry/pink. Patient states feeling better. Patient states symptoms have improved. 05:46 Reassessment: patient pending discharge after antibiotics is completed. pf1 06:00 Reassessment: Patient appears in no apparent distress at this time. Patient and/or pf1 family updated on plan of care and expected duration. Pain level reassessed. Patient is alert, oriented x 3, equal unlabored respirations, skin warm/dry/pink. Patient states feeling better. Patient states symptoms have improved. Vital Signs: 00:28 BP 127 / 88; Pulse 97; Resp 16; Temp 97.5; Pulse Ox 99% on R/A; Weight 74.39 kg; Height pf1 5 ft. 2 in. ; Pain 10/10; 02:00 BP 117 / 79; Pulse 95; Resp 16; Pulse Ox 100% ; pf1 03:00 BP 129 / 78; Pulse 89; Resp 16; Pulse Ox 100% on R/A; pf1 04:00 BP 113 / 73; Pulse 88; Resp 16; Pulse Ox 99% on R/A; Pain 3/10; pf1 05:00 BP 115 / 80; Pulse 85; Resp 16; Pulse Ox 100% on R/A; Pain 0/10; pf1 06:00 BP 122 / 76; Pulse 79; Resp 16; Temp 98.3; Pulse Ox 99% on R/A; Pain 0/10; pf1 00:28 Body Mass Index 30.00 (74.39 kg, 157.48 cm) pf1 00:28 Pain Scale: Adult pf1 04:00 Pain Scale: Adult pf1 05:00 Pain Scale: Adult pf1 06:00 Pain Scale: Adult pf1 ED Course: 05/27 23:46 Patient arrived in ED. [id number] 23:53 Mack Harvey MD is Attending Physician. sp4 [id number] 00:34 Triage completed. pf1 00:35 Arm band placed on right wrist. pf1 01:55 Patient has correct armband on for positive identification. Placed in gown. Bed in low pf1 position. Call light in reach. Side rails up X 1. 02:00 Client placed on continuous cardiac and pulse oximetry monitoring. NIBP monitoring pf1 applied. 02:00 Patient maintains SpO2 saturation greater than 95% on room air. pf1 02:05 Inserted saline lock: 20 gauge in right antecubital area, using aseptic technique. rv1 Blood collected. 02:05 Initial lab(s) drawn, by ED staff, sent to lab. Urine collected: clean catch specimen. pf1 02:06 T4 Free Sent. rv1 02:06 TSH Sent. rv1 02:06 CRP Sent. rv1 02:06 CBC with Diff Sent. rv1 02:06 CMP Sent. rv1 02:06 Lipase Sent. rv1 02:06 Test, Urine Sent. rv1 02:06 Urinalysis w/ reflexes Sent. rv1 02:56 CT Chest, Abdomen, Pelvis - W/Contrast In Process Unspecified. EDMS 05:13 Emiliano Travis DO is Referral Physician. sp4 06:00 Provided Education on: prescriptions. pf1 06:00 No provider procedures requiring assistance completed. IV discontinued, intact, pf1 bleeding controlled, No redness/swelling at site. Pressure dressing applied. Administered Medications: 02:40 Drug: Ketorolac IVP 30 mg IVP once Route: IVP; Site: right antecubital; pf1 03:40 Follow up: Response: No adverse reaction; Marked relief of symptoms; Pain is decreased pf1 02:40 Drug: metoCLOPramide IVP 10 mg IVP once; over 1 to 2 minutes Route: IVP; Site: right pf1 antecubital; 03:40 Follow up: Response: No adverse reaction; Marked relief of symptoms pf1 02:40 Drug: Acetaminophen-Codeine PO (300 mg-30 mg) 2 tabs PO once; RASS on ADMIN: Combtv4, pf1 Very Agttd3, Agttd2, Rstlss1, AlertClm0, Drwsy-1, Lt Sdtn-2, Mod Sdtn-3, Dp Sdtn-4, UnArsble-5 Route: PO; 03:40 Follow up: Response: No adverse reaction; Marked relief of symptoms; Pain is decreased; pf1 RASS: Alert and Calm (0) 05:20 Drug: Rocephin - Rocephin (cefTRIAXone) IVPB 1 grams IVPB once over 30 mins; (mix in 50 pf1 mL NS) Route: IVPB; Infused Over: 30 mins; Site: right antecubital; 06:00 Follow up: Response: No adverse reaction; IV Status: Completed infusion; IV Intake: [id number] 05:20 Drug: metroNIDAZOLE PO 500 mg PO once Route: PO; pf1 06:00 Follow up: Response: No adverse reaction; Marked relief of symptoms pf1 05:20 Drug: Promethazine PO 25 mg PO once Route: PO; pf1 06:00 Follow up: Response: No adverse reaction; Marked relief of symptoms pf1 05:20 Drug: Dicyclomine PO 20 mg PO once Route: PO; pf1 06:00 Follow up: Response: No adverse reaction; Marked relief of symptoms pf1 05:20 Drug: Ibuprofen PO 800 mg PO once Route: PO; pf1 06:00 Follow up: Response: No adverse reaction; Marked relief of symptoms pf1 Medication: 06:00 VIS not applicable for this client. pf1 Intake: 06:00 IV: 50ml; Total: 50ml. pf1 Outcome: 05:13 Discharge ordered by . sp4 06:00 Discharged to home ambulatory, with family, pf1 06:00 Condition: improved pf1 06:00 Discharge instructions given to patient, Instructed on discharge instructions, follow up and referral plans. Demonstrated understanding of instructions, follow-up care, medications, Prescriptions given X 5 06:31 Patient left the ED. pf1 Signatures: Dispatcher [employer] EDMS Sana Dyson [id number] Meagan Whiteside RN RN pf1 Mendy Carmona rv1 Mack Harvey MD MD sp4
--- NOTE | 2023-05-29 05:14 | EDPHYS ---
Physician Documentation [facility] Name: Luis Puckett Age: 22 yrs Sex: Female : 2000 Arrival Date: 05/28/2023 Time: 23:43 Bed 11 Private MD: ED Physician Mack Harvey HPI: 05/27 23:53 This 22 yrs old Female presents to ER via Unassigned with complaints of Chest sp4 Pain, Neck and Upper Back Pain, Abdominal Pain. 05/28 00:08 22-year-old female with no significant past medical history presents with acute onset sp4 of right flank pain associated with pain radiation up into the right chest and neck. Patient states pain started yesterday and is now moderate to severe. Pain is sharp and constant. Patient denied any other symptoms. No known drug allergies. No history of prior surgery. No history of prior pregnancies. . 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 - Infectious Disease History:: Denies. - Family history:: not pertinent. - Social history:: Smoking status: Patient denies any tobacco usage or history of. Patient uses alcohol, occasionally. Patient/guardian denies using street drugs. ROS: 00:08 Constitutional: Negative for fever, chills, and weight loss, positive right flank pain sp4 positive right chest pain, positive right radiation into the neck 00:08 All other systems are negative, Exam: 00:08 Constitutional: This is a well developed, well nourished patient who is awake, alert, sp4 and in no acute distress. Head/Face: Normocephalic, atraumatic. Eyes: Pupils equal round and reactive to light, extra-ocular motions intact. Lids and lashes normal. Conjunctiva and sclera are not injected. Cornea within normal limits. Periorbital areas with no swelling, redness, or edema. ENT: Nares patent. No nasal discharge, no septal abnormalities noted. Tympanic membranes are normal and external auditory canals are clear. Oropharynx with no redness, swelling, or masses, exudates, or evidence of obstruction, uvula midline. Mucous membranes moist. Neck: Trachea midline, no thyromegaly or masses palpated, and no cervical lymphadenopathy. Supple, full range of motion without nuchal rigidity, or vertebral point tenderness. Chest/axilla: Normal chest wall appearance and motion. Nontender with no deformity. No lesions are appreciated. Cardiovascular: Regular rate and rhythm with a normal S1 and S2. No gallops, murmurs, or rubs. Normal PMI, no JVD. No pulse deficits. Respiratory: Lungs have equal breath sounds bilaterally, clear to auscultation and percussion. No rales, rhonchi or wheezes noted. No increased work of breathing, no retractions or nasal flaring. Abdomen/GI: Soft, with normal bowel sounds. No distension or tympany. No guarding or rebound. No evidence of tenderness throughout. Back: No spinal tenderness. No costovertebral tenderness. Skin: Warm, dry with normal turgor. Normal color with no rashes, no lesions, and no evidence of cellulitis. MS/ Extremity: Pulses equal, no cyanosis. Neurovascular intact. Full, normal range of motion. Neuro: Awake and alert, GCS 15, oriented to person, place, time, and situation. Cranial nerves II-XII grossly intact. Motor strength 5/5 in all extremities. Sensory grossly intact. Psych: Awake, alert, with orientation to person, place and time. Behavior, mood, and affect are within normal limits Vital Signs: 00:28 BP 127 / 88; Pulse 97; Resp 16; Temp 97.5; Pulse Ox 99% on R/A; Weight 74.39 kg; Height pf1 5 ft. 2 in. ; Pain 10/10; 02:00 BP 117 / 79; Pulse 95; Resp 16; Pulse Ox 100% ; pf1 03:00 BP 129 / 78; Pulse 89; Resp 16; Pulse Ox 100% on R/A; pf1 04:00 BP 113 / 73; Pulse 88; Resp 16; Pulse Ox 99% on R/A; Pain 3/10; pf1 05:00 BP 115 / 80; Pulse 85; Resp 16; Pulse Ox 100% on R/A; Pain 0/10; pf1 06:00 BP 122 / 76; Pulse 79; Resp 16; Temp 98.3; Pulse Ox 99% on R/A; Pain 0/10; pf1 00:28 Body Mass Index 30.00 (74.39 kg, 157.48 cm) pf1 00:28 Pain Scale: Adult pf1 04:00 Pain Scale: Adult pf1 05:00 Pain Scale: Adult pf1 06:00 Pain Scale: Adult pf1 MDM: 05/27 23:54 Patient medically screened. sp4 05/28 04:53 ED course: CLINICAL HISTORY: Right flank and chest pain COMPARISON: None. TECHNIQUE: CT sp4 CHESTABDOMEN PELVIS WITH IV CONTRAST on 05/29/2023 12:07 AM CDT. MIPS reconstructions were generated. This exam was performed according to our departmental dose-optimization program, which includes automated exposure control, adjustment of the mA and/or kV according to patient size and/or use of iterative reconstruction technique. FINDINGS: Vascular: Thoracic aorta is normal in course and caliber without aneurysm or dissection. Pulmonary arteries are adequately opacified without acute or chronic filling defects. Abdominal aorta is normal in course and caliber without aneurysm. Pelvic arteries are patent without aneurysm or occlusion. Chest: The heart is normal in size. There is no pericardial effusion. Intrathoracic lymph nodes are not enlarged. There is no pleural effusion, pleural thickening or pneumothorax. Central airways are patent. Lungs are clear with no consolidation, mass or interstitial lung disease. Abdomen: The liver is normal in appearance. There is no biliary dilatation. Gallbladder is decompressed. The pancreas and spleen are normal in appearance. The adrenal glands and kidneys are unremarkable. There is no free air. There is no retroperitoneal adenopathy. Pelvis: There is no bowel obstruction. Urinary bladder is unremarkable. There is no free fluid. Uterus is normal in size. There are enlarged left inguinal lymph nodes measuring up to 1.8 cm. Appendix is normal. There is mild inflammation centered around multiple otherwise normal-appearing small bowel loops in the right lower quadrant. Skeleton: There are no acute osseous findings. No suspicious bony lesions. IMPRESSION: Nonspecific inflammatory process in the right lower quadrant centered around multiple small bowel loops with a normal-appearing appendix. Electronically signed by: Maged Hooker MD 05/29/2023 04:02 AM. 05:02 ED course: . sp4 05:11 Differential diagnosis: acute pericarditis, anxiety, cholecystitis, Cholelithiasis sp4 costochondritis, esophagitis, gastritis. Data reviewed: vital signs, nurses notes, old medical records, lab test result(s), radiologic studies, CT scan. Consideration of Admission/Observation Escalation of care including admission/observation considered. ED course: Patient CT has revealed nonspecific inflammation surrounding the right lower quadrant small bowel loops with normal-appearing appendix. This most likely represents enteritis. Will provide prescription for cephalexin and Flagyl for 10-day course. Also Bentyl, Phenergan and high-dose ibuprofen. Will advise follow-up with doughnut dough mixer in 7 to 10 days. . 05/27 23:54 Order name: CBC with Diff; Complete Time: 02:50 sp4 05/27 23:54 Order name: CMP; Complete Time: 02:50 sp4 05/27 23:54 Order name: Lipase; Complete Time: 02:50 sp4 05/27 23:54 Order name: Test, Urine; Complete Time: 02:50 sp4 05/27 23:54 Order name: Urinalysis w/ reflexes; Complete Time: 04:53 sp4 05/28 00:07 Order name: CRP; Complete Time: 02:50 sp4 05/28 00:07 Order name: TSH; Complete Time: 02:50 sp4 05/28 00:07 Order name: T4 Free; Complete Time: 02:50 sp4 05/28 03:03 Order name: Urine Culture [facility] 05/28 00:07 Order name: CT Chest, Abdomen, Pelvis - W/Contrast sp4 05/27 23:54 Order name: IV Saline Lock; Complete Time: 02:06 sp4 05/27 23:54 Order name: Labs collected and sent; Complete Time: 02:06 sp4 Administered Medications: 02:40 Drug: Ketorolac IVP 30 mg IVP once Route: IVP; Site: right antecubital; pf1 03:40 Follow up: Response: No adverse reaction; Marked relief of symptoms; Pain is decreased pf1 02:40 Drug: metoCLOPramide IVP 10 mg IVP once; over 1 to 2 minutes Route: IVP; Site: right pf1 antecubital; 03:40 Follow up: Response: No adverse reaction; Marked relief of symptoms pf1 02:40 Drug: Acetaminophen-Codeine PO (300 mg-30 mg) 2 tabs PO once; RASS on ADMIN: Combtv4, pf1 Very Agttd3, Agttd2, Rstlss1, AlertClm0, Drwsy-1, Lt Sdtn-2, Mod Sdtn-3, Dp Sdtn-4, UnArsble-5 Route: PO; 03:40 Follow up: Response: No adverse reaction; Marked relief of symptoms; Pain is decreased; pf1 RASS: Alert and Calm (0) 05:20 Drug: Rocephin - Rocephin (cefTRIAXone) IVPB 1 grams IVPB once over 30 mins; (mix in 50 pf1 mL NS) Route: IVPB; Infused Over: 30 mins; Site: right antecubital; 06:00 Follow up: Response: No adverse reaction; IV Status: Completed infusion; IV Intake: [id number] 05:20 Drug: metroNIDAZOLE PO 500 mg PO once Route: PO; pf1 06:00 Follow up: Response: No adverse reaction; Marked relief of symptoms pf1 05:20 Drug: Promethazine PO 25 mg PO once Route: PO; pf1 06:00 Follow up: Response: No adverse reaction; Marked relief of symptoms pf1 05:20 Drug: Dicyclomine PO 20 mg PO once Route: PO; pf1 06:00 Follow up: Response: No adverse reaction; Marked relief of symptoms pf1 05:20 Drug: Ibuprofen PO 800 mg PO once Route: PO; pf1 06:00 Follow up: Response: No adverse reaction; Marked relief of symptoms pf1 Disposition Summary: 05/29/23 05:13 Discharge Ordered Notes: Location: Home sp4 Problem: new sp4 Symptoms: have improved sp4 Condition: Stable sp4 Diagnosis - Infectious gastroenteritis and colitis, unspecified sp4 - Acute enteritis sp4 Followup: sp4 - With: Emiliano Travis DO - When: 7 - 10 days - Reason: Recheck today's complaints Discharge Instructions: - Discharge Summary Sheet sp4 - Clear Liquid Diet, Adult, Vuxs-of-Vcxi sp4 Forms: - Family Work Release cg - Patient Portal Instructions sp4 Prescriptions: - Cephalexin 500 mg Oral Capsule - take 1 capsule ORAL route every 12 hours for 10 days; 20 capsule; Refills: 0, sp4 Product Selection Permitted - Flagyl 500 mg Oral Tablet - take 1 tablet ORAL route every 8 hours for 10 days; 30 tablet; Refills: 0, sp4 Product Selection Permitted - Ibuprofen 600 mg Oral Tablet - take 1 tablet ORAL route every 6 hours As needed take with food; 30 tablet; sp4 Refills: 0, Product Selection Permitted - promethazine 25 mg Oral tablet - take 1 tablet ORAL route every 6 hours As needed PRN nausea; 30 tablet; sp4 Refills: 0, Product Selection Permitted - dicyclomine 20 mg Oral tablet - take 1 tablet ORAL route every 8 hours PRN abdominal pains; 30 tablet; Refills: sp4 0, Product Selection Permitted Signatures: Dispatcher [employer] EDMS Meagan Whiteside RN RN pf1 Mack Harvey MD MD sp4 Corrections: (The following items were deleted from the chart) 00:08 00:07 Chest Abdomen Pelvis W Con+CT.RAD.BRZ ordered. EDMS EDMS 00:08 00:08 C-REACTIVE PROTEIN+C.LAB.BRZ ordered. EDMS EDMS
[2023-05-29] MEDS ORDERED: CEFTRIAXONE 1000 MG/VIAL ONE (05:19)
[2023-05-29] MEDS ORDERED: metroNIDAZOLE 500 MG TABLET ONE (05:20)
[2023-05-29] MEDS ORDERED: IBUPROFEN 400 MG TAB ONE (05:20)
[2023-05-29] MEDS ORDERED: DICYCLOMINE HCL 10 MG CAP ONE (05:20)
[2023-05-29] MEDS ORDERED: PROMETHAZINE 25 MG TABLET ONE (05:20)
[2023-05-29] MEDS ORDERED: NA CHLORIDE 0.9% 50 ML ONE (05:21)
[2023-05-29 07:25] VITALS: BP 122/76; TEMP 98.3; O2SAT 99
--- NOTE | 2023-05-29 11:06 | RAD REPORT ---
EXAM DESCRIPTION: CT CHEST ABDOMEN PELVIS WITH IV CONTRAST CLINICAL HISTORY: Right flank and chest pain COMPARISON: None. TECHNIQUE: CT CHEST ABDOMEN PELVIS WITH IV CONTRAST on 05/29/2023 12:07 AM CDT. MIPS reconstructions w ere generated. This exam was performed according to our departmental dose-optimization program, which includes autom ated exposure control, adjustment of the mA and/or kV according to patient size and/or use of iterati ve reconstruction technique. FINDINGS: Vascular: Thoracic aorta is normal in course and caliber without aneurysm or dissection. P ulmonary arteries are adequately opacified without acute or chronic filling defects. Abdominal aorta is normal in course and caliber without aneurysm. Pelvic arteries are patent without aneurysm or occl usion. Chest: The heart is normal in size. There is no pericardial effusion. Intrathoracic lymph nodes are n ot enlarged. There is no pleural effusion, pleural thickening or pneumothorax. Central airways are patent. Lungs a re clear with no consolidation, mass or interstitial lung disease. Abdomen: The liver is normal in appearance. There is no biliary dilatation. Gallbladder is decompress ed. The pancreas and spleen are normal in appearance. The adrenal glands and kidneys are unremarkable . There is no free air. There is no retroperitoneal adenopathy. Pelvis: There is no bowel obstruction. Urinary bladder is unremarkable. There is no free fluid. Uteru s is normal in size. There are enlarged left inguinal lymph nodes measuring up to 1.8 cm. Appendix is normal. There is mild inflammation centered around multiple otherwise normal-appearing small bowel l oops in the right lower quadrant. Skeleton: There are no acute osseous findings. No suspicious bony lesions. IMPRESSION: Nonspecific inflammatory process in the right lower quadrant centered around multiple sm all bowel loops with a normal-appearing appendix. Electronically signed by: Maged Hooker MD 05/29/2023 04:02 AM CDT Due to temporary technical issues with the PACS/Fluency reporting system, reports are being signed by the in house radiologist without review as a courtesy to ensure prompt reporting. The interpreting r adiologist is fully responsible for the content of the report.
== END 2023-05-29 06:31 | disposition home or self-care (01) ==
LOC: ER 23:43
DX: A09 Infectious gastroenteritis and colitis, unspecified (principal)
CPT/HCPCS: 87088; 85025; 81001; 87086; 36415; 81025; 84443; 84439; 83690; 80053; 86140; 71260; 74177; Q9967; Q0169; J2765; J0696